=== PATIENT | female | born 1940 | race Caucasian/White ===

== ENCOUNTER 2020-06-18 08:21 | Outpatient (CLI) | payer MEDICARE, OTHER, SELFPAY ==
--- NOTE | ~2020-06-18 | MM_ITS ---
EXAMINATION: MM screening [facility] BI w aileen HISTORY: Screening mammogram TECHNIQUE: Craniocaudal and mediolateral oblique 3-D tomosynthesis images were obtained and synthetic 2-D images were generated. CAD analysis was submitted and interpreted. COMPARISON: 10/28/2018 diagnostic left mammogram and left breast 10/20/2018, 10/29/2015 bilateral digital screening mammogram examinations BREAST PARENCHYMAL COMPOSITION: The breasts are heterogeneously dense, which may obscure small masses . FINDINGS: Stable fibroglandular asymmetry. There is no evidence of suspicious mass, calcification, or architectural distortion to suggest malignancy in either breast. There has been no suspicious interv al change. IMPRESSION: 1. No mammographic evidence of malignancy. 2. Recommend routine screening mammography in one year. BI-RADS Category 2: Benign finding(s). Reviewed, dictated and finalized at location A.
== END 2020-06-18 08:22 | disposition home or self-care (01) ==
LOC: CHSIMG 08:24
PROVIDERS: PCP Nurse Practitioner Family; Visit Provider Nurse Practitioner Family
DX: Z12.31 Encounter for screening mammogram for malignant neoplasm of breast (principal)
CPT/HCPCS: 77063; 77067

== ENCOUNTER 2020-07-25 09:59 | Outpatient (CLI) | payer MEDICARE, SELFPAY ==
[2020-07-25 10:13] LABS: Hematocrit 38.6 % (35.0-42.0); Hemoglobin 13.2 g/dL (11.7-13.8); Mean Corpuscular HGB Conc 34.2 g/dL (32.0-36.0); Mean Corpuscular Hemoglobin 33.2 pg (27.0-31.0); Mean Platelet Volume 10.7 fl (9.2-11.8); Platelet Count Result 169 K/mm3 (150-420); Red Blood Count 3.98 M/mm3 (4.20-5.40); White Blood Count 4.2 K/mm3 (4.8-10.8)
[2020-07-25 11:00] LABS: Alanine Aminotransferase 43 U/L (14-59); Albumin Level 4.3 g/dL (3.4-5.0); Alkaline Phosphatase 44 U/L (46-116); Anion Gap 11 mmol/L (8-16); Aspartate Amino Transferase 20 U/L (15-37); Bilirubin,Total 0.9 mg/dL (0.00-1.00); Blood Urea Nitrogen 24 mg/dL (7-18); Calcium 9.6 mg/dL (8.5-10.1); Carbon Dioxide 28 mmol/L (21-32); Chloride 102 mmol/L (98-108); Estimated Glomerular Filt Rate 54; Glucose 111 mg/dL (70-99); Osmolality Calculated 297 mOsm/kg (285-295); Potassium 4.1 mmol/L (3.5-5.1); Sodium 141 mmol/L (136-145)
== END 2020-07-25 10:00 | disposition home or self-care (01) ==
LOC: CHSLAB 10:02
PROVIDERS: PCP Nurse Practitioner Family; Visit Provider Nurse Practitioner Family
DX: I10 Essential (primary) hypertension (principal)
CPT/HCPCS: 36415; 80053; 85027

== ENCOUNTER 2020-12-13 10:31 | Outpatient (CLI) | payer MEDICARE, OTHER, SELFPAY ==
--- NOTE | ~2020-12-13 | XR_ITS ---
EXAMINATION: XR chest 2V 12/13/2020 11:06 INDICATION: Chest pain and tightness PROCEDURE: 2 view chest COMPARISON: Heart size normal. No focal air space disease, pulmonary edema, pleural effusion or suspe cted pneumothorax. FINDINGS: The lungs are clear. The cardiomediastinal silhouette is within normal limits. There are no pleural effusions. There is no pneumothorax suspected. IMPRESSION: 1: NO ACUTE CARDIOPULMONARY DISEASE. Reviewed, dictated and finalized at location B.
--- NOTE | 2020-12-13 10:44 | ECG_ITS ---
Measurements Intervals [place] Rate: 61 P: 70 [place]: 153 QRS: 18 QRSD: 92 T: 65 QT: 387 QTc: 392 Interpretive Statements SINUS RHYTHM DELAYED PRECORDIAL R/S TRANSITION BORDERLINE ECG Electronically Signed On 12-13-2020 13:34:41 CDT by Vitaliy Osborne D.O.
== END 2020-12-13 10:32 | disposition home or self-care (01) ==
LOC: CHSCARD 10:35
PROVIDERS: PCP Nurse Practitioner Family; Visit Provider Nurse Practitioner Family
DX: R07.9 Chest pain, unspecified (principal)
CPT/HCPCS: 71046; 93005

== ENCOUNTER 2021-04-18 09:13 | Outpatient (CLI) | payer MEDICARE, OTHER, SELFPAY ==
--- NOTE | ~2021-04-18 | US_ITS ---
EXAMINATION: US carotid duplex BI DATE: 04/18/2021 09:47 INDICATION: Vascular headache. TECHNIQUE: Grayscale, color Doppler, and pulsed Doppler images of the cervical carotid arteries were obtained. The degree of vessel stenosis is placed in one of the following categories: normal, <50%, 5 0-69%, >=70% but less than near-occlusion, near-occlusion, or total occlusion. Note that percent sten osis relative to normal distal artery lumen diameter is indirectly measured from velocity measurement s as described by En, et al. Radiology 2003; 229:340-346. Notes: Normal: Peak systolic velocity <125 centimeters/sec and no plaque <50%. Peak systolic velocity <125 ( EDV <40; ICA/CCA PSV ratio <2.0; used these factors only a tandem lesions or low cardiac output or co ntralateral disease) 50-69 %: PSV 125-230 (EDV 40-100; ratio 2-4) >= 70% but less than near occlusion: PSV greater than 230 (EDV > 100; ratio> 4.0) Near Occlusion: PSV that is variable; markedly narrowed lumen Occlusion: Absent flow on color/spectral Doppler and no lumen on mandel scale. COMPARISON: None. FINDINGS: RIGHT: The right common carotid artery (CCA) peak systolic velocity (PSV) is 83 cm/s. The right internal car otid artery (ICA) PSV is 55 cm/s. The right ICA end-diastolic velocity (EDV) is 14 cm/s. The right IC A/CCA PSV ratio is 0.7. The external carotid artery (ECA) PSV is 74 cm/s. There is antegrade flow in the right vertebral artery. LEFT: The left CCA PSV is 92 cm/s. The left ICA PSV is 54 cm/s. The left ICA EDV is 12 cm/s. The left ICA/C CA PSV ratio is 0.6. The ECA PSV is 68 cm/s. There is antegrade flow in the left vertebral artery. IMPRESSION: 1. Less than 50% stenosis in the right internal carotid artery by sonographic criteria. 2. Less than 50% stenosis in the left internal carotid artery by sonographic criteria. Reviewed, dictated and finalized at location B. RGRADUATE INTERNSHIP IMPRESSION: 1. Less than 50% stenosis in the right internal carotid artery by sonographic luana lantigua. 2. Less than 50% stenosis in the left internal carotid artery by sonographic henrietta desouza.
== END 2021-04-18 09:14 | disposition home or self-care (01) ==
LOC: ANHIMG 09:17
PROVIDERS: PCP Nurse Practitioner Family; Visit Provider Nurse Practitioner Family
DX: G44.1 Vascular headache, not elsewhere classified (principal); R42 Dizziness and giddiness; I65.23 Occlusion and stenosis of bilateral carotid arteries
CPT/HCPCS: 93880

== ENCOUNTER 2021-04-21 13:21 | Outpatient (CLI) | payer MEDICARE, OTHER, SELFPAY ==
--- NOTE | 2021-04-21 | ECHO_ITS ---
Patient Info Name: Briana Ferrell Age: 80 years : 1940 Gender: Female Ht: 58 in Wt: 128 lbs BSA: 1.56 m2 HR: 76 bpm BP: 149 / 82 mmHg Heart Rhythm: Sinus Rhythm Exam Date: 04/21/2021 1:54 PM Exam Location: [facility] Patient Status: Outpatient Admit Date: 04/21/2021 Staff Ordering Physician: Jong, Olegario Hernández NP Retail Advisor: Timbo Vincent, DARIEL, RT Attending Provider: Jong, Olegario Hernández NP Referring Physician: Jong GONZALEZ; Exam Type: CA echo doppler color flow Study Info Indications R00.2 - Palpitations Complete two-dimensional, color flow and Doppler transthoracic echocardiogram is performed. Strain analysis performed. Summary 1. Complete two-dimensional, color flow and Doppler transthoracic echocardiogram is performed. 2. Strain analysis performed. 3. Left ventricular chamber dimension is normal. 4. Left ventricular systolic function is normal, estimated at 65-70%. 5. There is mildly increased left ventricular wall thickness. 6. Left ventricular septal wall motion is normal. 7. The left ventricular diastolic function is grade I diastolic dysfunction. 8. Global longitudinal strain is normal at -19 %. 9. Left atrial chamber dimension is mildly enlarged. 10. There is mild aortic valve regurgitation. 11. There is mild aortic valve calcification. 12. The mitral valve has calcified annulus. 13. There is mild tricuspid valve regurgitation. 14. Mild pulmonary hypertension, estimated pulmonary arterial systolic pressure is 37 mmHg. Left Ventricle Left ventricular chamber dimension is normal. Left ventricular systolic function is normal, estimated at 65-70%. There is mildly increased left ventricular wall thickness. Left ventricular septal wall motion is normal. The left ventricular diastolic function is grade I diastolic dysfunction. Global longitudinal strain is normal at -19 %. Right Ventricle Right ventricular chamber dimension is normal. Right ventricular systolic function is normal. Left Atria Left atrial chamber dimension is mildly enlarged. Right Atria Right atrial chamber dimension is normal. Atrial Septum Intact interatrial septum visualized by color flow imaging. Aortic Valve The aortic valve is trileaflet. There is no aortic valve stenosis. There is mild aortic valve regurgitation. There is mild aortic valve calcification. Pulmonic Valve The pulmonic valve is normal. There is no pulmonic valve stenosis. There is trace pulmonic regurgitation. Mitral Valve The mitral valve has calcified annulus. There is no mitral valve stenosis. There is trace mitral valve regurgitation. Tricuspid Valve The tricuspid valve leaflets are normal. There is no significant tricuspid valve stenosis. There is mild tricuspid valve regurgitation. Mild pulmonary hypertension, estimated pulmonary arterial systolic pressure is 37 mmHg. Pericardium/Pleural The pericardium appears normal. There is trivial pericardial effusion. Inferior Vena Cava Normal inferior vena cava with >50% collapse upon inspiration consistent with normal right atrial pressure, 5 mmHg. Aorta The aortic root size at the sinus of Valsalva is normal. Left Ventricular Outflow Tract Name Value Normal LVOT 2D
== END 2021-04-21 13:22 | disposition home or self-care (01) ==
LOC: ANHCARD 13:25
PROVIDERS: PCP Nurse Practitioner Family; Visit Provider Nurse Practitioner Family
DX: R00.2 Palpitations (principal); I08.3 Combined rheumatic disorders of mitral, aortic and tricuspid valves
CPT/HCPCS: 93306

== ENCOUNTER 2021-04-23 09:31 | Outpatient (CLI) | payer MEDICARE, OTHER, SELFPAY ==
--- NOTE | ~2021-04-23 | CT_ITS ---
EXAMINATION: CT brain wo con DATE: 04/23/2021 09:55 INDICATION: Forgetfulness, memory loss. History of transient ischemic attack. TECHNIQUE: Computed tomography (CT) of the head was performed without intravenous contrast. The mA wa s adjusted according to patient size. Iterative reconstruction technique was employed. Exam dose: 60 5.33 mGy-cm total exam DLP. COMPARISON: None FINDINGS: There is cerebral atherosclerosis including prominent bilateral carotid siphon internal car otid artery and some vertebral and basilar artery calcification. There is nonspecific diminished atte nuation of the cerebral white matter, likely due to chronic small vessel ischemic changes. No intracranial mass lesion or hemorrhage or cerebrovascular accident, midline shift or mass effect. Ventricular size is normal. Included sinuses and mastoid air cells are unremarkable. No fracture or bone destruction of the cranial vault. IMPRESSION: Cerebral atherosclerosis and chronic small vessel ischemic changes of the cerebral white matter No significant abnormality is noted otherwise Reviewed, dictated and finalized at Location A. Reviewed, dictated and finalized at location A. 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
== END 2021-04-23 09:32 | disposition home or self-care (01) ==
LOC: ANHIMG 09:32
PROVIDERS: PCP Nurse Practitioner Family; Visit Provider Nurse Practitioner Family
DX: R41.3 Other amnesia (principal); I67.2 Cerebral atherosclerosis
CPT/HCPCS: 70450

== ENCOUNTER 2021-05-30 19:30 | Emergency (ER) | payer MEDICARE, OTHER, SELFPAY ==
--- NOTE | ~2021-05-30 | XR_ITS ---
XR wrist LT w scaphoid DATE: 05/30/2021 19:57 INDICATION: Left wrist injury from fall; pain and deformity. TECHNIQUE: 5 views COMPARISON: None FINDINGS: There is diffuse osteopenia. There is a comminuted impacted intra-articular fracture of the distal radius with approximately 40 de grees apex anterior angulation, up to 2.7 mm dorsal displacement. There is severe osteoarthritic change at the first carpometacarpal joint. IMPRESSION: Comminuted impacted intra-articular fracture of distal radius with up to 40 degrees apex anterior angulation Severe osteoarthritis at the first carpometacarpal joint Osteopenia Reviewed, dictated and finalized at location A.
[2021-05-30 19:39] VITALS: BP 160/80; PULSE 80; RESP 18; TEMP 36.4; O2SAT 99
--- NOTE | 2021-05-30 19:43 | ED.GENADULT ---
HPI - General Adult General Chief complaint: Fall Stated complaint: ARM INJURY Source: patient Mode of arrival: ambulatory Limitations: no limitations History of Present Illness HPI narrative: Briana presented to the ED after a fall while bowling. She fell onto her left wrist. She has no other injuries. She did not hit her head or neck. She denies any pain. Related Data Home Medications Medication Instructions Recorded Confirmed aspirin 81 mg tablet,delayed 81 mg PO DAILY 06/20/19 05/30/21 release ascorbate calcium (vitamin C) 500 500 mg PO DAILY 07/25/20 05/30/21 mg tablet zinc 50 mg tablet 50 mg PO DAILY 07/25/20 05/30/21 Allergies Allergy/AdvReac Type Severity Reaction Status Date / Time Sulfonamides Allergy Intermediate Unknown Uncoded 02/04/21 09:04 Review of Systems Constitutional: Constitutional: Reports no additional constitutional complaints Eyes: Eyes: Reports no additional eye complaints ENT: Reports system reviewed and no additional complaints, except as documented Cardiovascular: Cardiovascular: Reports no additional cardiovascular complaints Respiratory: Respiratory: Reports no additional respiratory complaints Gastrointestinal: Gastrointestinal: Reports no additional gastrointestinal complaints Genitourinary: Genitourinary: Reports no additional female genitourinary complaints Musculoskeletal: Musculoskeletal: Reports no additional musculoskeletal complaints Integumentary/Breasts: Skin/Breast: Reports system reviewed and no additional complaints, except as docu Neurologic: Reports system reviewed and no additional complaints, except as documented Psychiatric: Psychiatric: Reports no additional psychiatric complaints Endocrine: Endocrine: Reports no additional endocrine complaints Hematologic/Lymphatic: Hematologic/Lymphatic: Reports no additional hematologic/lymphatic complaints Allergic/Immunologic: Allergic/Immunologic: Reports no additional allergic/immunologic complaints [facility] Past Medical History Medical History HTN (hypertension) Hyperlipidemia Surgical History Surgical History History of section, classical x3 History of lumpectomy x's 3 Family History Family History Mother Family history unremarkable Father Heart disease Social History Social History Smoking status: Never smoker Alcohol intake: never Substance use type: does not use Additional occupation/education comments: [employer] Gender identity (if verbalized by the patient): Female Sexual Orientation (if Verbalized by the Patient): Straight or Heterosexual Exam Const: General: no acute distress and alert Orientation/consciousness: patient oriented x3 Limitations: No altered mental status HENMT: Head: normal to inspection Other: atrauamtic Eyes: Conjunctivae: conjunctivae normal Pupils: Equal, round and reactive pupils present Neck: Neck: normal visual inspection Chest: Chest palpation & inspection: normal inspection of the chest Resp: Effort & Inspection: normal respiratory effort Cardio: Rate: regular rate Skin: General skin exam: normal color Rashes: no rashes Neuro: General: patient oriented x3 and moves all extremities Extrem: Other: Left wrist has obvious deformity with posterior displacement of the left wrist. Sensation intact in all fingers. Radial pulse intact. Course Course Emergency Course: Declined pain meds multiple times. XR wrist LT w scaphoid DATE: 05/30/2021 19:57 INDICATION: Left wrist injury from fall; pain and deformity. TECHNIQUE: 5 views COMPARISON: None FINDINGS: There is diffuse osteopenia. There is a comminuted impacted intra-articular fracture of the distal radius with approx
--- NOTE | 2021-05-30 20:52 | PC.NURSE ---
films sent to [facility]
--- NOTE | 2021-05-30 21:29 | PC.NURSE ---
OCL spint applied per MD, automatic typewriter inspector applied sling. nail beds keven well, good pulses in left arm & hand
[2021-05-30 21:36] VITALS: BP 150/88; PULSE 88; RESP 18; TEMP 36.6; O2SAT 99
== END 2021-05-30 21:38 | disposition short-term general hospital (02) ==
PROVIDERS: Emergency Provider Family Medicine; PCP Nurse Practitioner Family
DX: S52.502A Unspecified fracture of the lower end of left radius, initial encounter for closed fracture (principal); W19.XXXA Unspecified fall, initial encounter
CPT/HCPCS: 29125; 73110; 99284; A4565

== ENCOUNTER 2021-06-12 08:33 | Outpatient (CLI) | payer MEDICARE, SELFPAY ==
[2021-06-12 10:00] LABS: Cholesterol 163 mg/dL (0-200); HDL Direct 44 mg/dL (40-60); LDL Cholesterol Calculated 97 mg/dL (<130); Triglycerides 108 mg/dL (0-150)
== END 2021-06-12 08:34 | disposition home or self-care (01) ==
PROVIDERS: PCP Nurse Practitioner Family
DX: E78.00 Pure hypercholesterolemia, unspecified (principal); G45.9 Transient cerebral ischemic attack, unspecified
CPT/HCPCS: 36415; 80061

== ENCOUNTER 2021-08-01 13:04 | Outpatient (RCR) | payer MEDICARE, SELFPAY ==
--- NOTE | 2021-08-01 14:03 | OTOPEVAL ---
Thank you for referring Briana Ferrell to [facility].? The patient is scheduled to be seen for therapy? ____x/week for ___ weeks. Please review, sign, date and return this plan of care RONAN. I agree with and certify that the following plan of care is medically necessary. Referring Physician Date Admitting Provider: Attending Provider: MAO LARA Referring Provider: JoanOT Outpatient Evaluation Start: 08/01/21 13:00 Freq: Status: Active Protocol: Document 08/01/21 13:00 [facility] [place] (Rec: 08/01/21 14:02 [facility] [place] [id number]) Therapy Assessment Status Assessment Status Assessment Status Evaluation Outpatient Past Medical History Neurological History Hx Transient Ischemic Attacks (TIA) Yes Cardiovascular History Hx Cardiac Arrhythmia Yes Hx Heart Murmur Yes Hx Hypercholesterolemia Yes Hx Hypertension Yes Gastrointestinal History Hx Gastroesophageal Reflux Disease Yes Musculoskeletal History Hx Arthritis Yes Evaluation Information Problem Diagnosis decreased L wrist ROM and strength Onset 05/30/21 Cause L distal radius fracture, L styloid process of ulna fracture Additional Evaluation Detail Quick DASH: 36.4% Subjective Information Patient reports that she fell Query Text:As Reported By Patient/ on 05/30/21 while bowling. Family Patient was in a splint/brace until about ~2 weeks ago. Patient reports that she has been trying to make herself use the L hand more and more. Patient states that opening containers, jars, etc is difficult. Patient states that her goal for therapy is to get her L wrist and hand stronger. 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
--- NOTE | 2021-08-26 15:40 | OTOPEVAL ---
Thank you for referring Briana Ferrell to [facility].? The patient is scheduled to be seen for therapy? ____x/week for ___ weeks. Please review, sign, date and return this plan of care RONAN. I agree with and certify that the following plan of care is medically necessary. Referring Physician Date Admitting Provider: Attending Provider: MAO LARA Referring Provider: JoanOT Outpatient Evaluation Start: 08/01/21 13:00 Freq: Status: Active Protocol: Document 08/26/21 14:[address] [facility] (Rec: 08/26/21 15:[address] [facility] [id number]) Therapy Assessment Status Assessment Status Assessment Status Discharge Outpatient Past Medical History Neurological History Hx Transient Ischemic Attacks (TIA) Yes Cardiovascular History Hx Cardiac Arrhythmia Yes Hx Heart Murmur Yes Hx Hypercholesterolemia Yes Hx Hypertension Yes Gastrointestinal History Hx Gastroesophageal Reflux Disease Yes Musculoskeletal History Hx Arthritis Yes Pain Assessment Timing of Pain Assessment Timing of Pain Assessment Re-assessment Self Report Self Report Pain Level 0 Pain Score Pain Score 0: Self Report Upper Extremity Range of Motion Wrist Range of Motion Left Wrist Flexion - Active 70 Wrist Extension - Active 55 Upper Extremity Muscle Strength Testing General Upper Extremity Strength Gross Upper Extremity Strength Comments L wrist: 5/5 Hand Oxyacetylene Burner/Pinch Strength Assessment Hand Left Oxyacetylene Burner Strength (lbs) 23 General Exercise General Exercises Side Left Exercise Description L wrist flexion/extension,2x10 Query Text:Record Sets, Reps, with 2 lb weight Resistance, and Position L supination/pronation 2x10 with 2 lb weight L radial/ulnar deviation 2x15 reps with 2 lb weight Red digi-flex resisting L finger flexion, 1x20 Green digi-flex resisting L finger flexion, 1x20 L tripod grasp resisting green clothespin, 2x20 pink theraputty resisting L functional pull with L-bar and standard turn with large knob , 10 reps x 2 sets each [ End ] Manual Therapy Manual Therapy Side Left Patient Position Sitting Treatment Comments STM to L dorsal and volar Query Text:Include Technique and forearm and wrist Result of Technique PROM L wrist flexion/extension
== END 2021-08-26 16:44 | disposition home or self-care (01) ==
LOC: CHSOT 13:04
DX: S52.502D Unspecified fracture of the lower end of left radius, subsequent encounter for closed fracture with routine healing (principal); S52.612D Displaced fracture of left ulna styloid process, subsequent encounter for closed fracture with routine healing
CPT/HCPCS: 97110; 97140; 97165

== ENCOUNTER 2021-11-11 07:54 | Outpatient (CLI) | payer MEDICARE, SELFPAY ==
--- NOTE | ~2021-11-11 | MM_ITS ---
EXAMINATION: MM screening [facility] BI w aileen HISTORY: Screening mammogram TECHNIQUE: Craniocaudal and mediolateral oblique 3-D tomosynthesis images were obtained and synthetic 2-D images were generated. CAD analysis was submitted and interpreted. COMPARISON: 06/18/2020, 10/28/2018, 10/20/2018 BREAST PARENCHYMAL COMPOSITION: There are scattered areas of fibroglandular density. FINDINGS: There is no suspicious mass, calcification, or architectural distortion to suggest malignan cy in either breast. There has been no suspicious interval change. IMPRESSION: 1. No mammographic evidence of malignancy. 2. Recommend routine screening mammography in one year. BI-RADS Category 1: Negative Reviewed, dictated and finalized at location A.
== END 2021-11-11 07:55 | disposition home or self-care (01) ==
LOC: CHSIMG 07:57
PROVIDERS: PCP Nurse Practitioner Family; Visit Provider Nurse Practitioner Family
DX: Z12.31 Encounter for screening mammogram for malignant neoplasm of breast (principal)
CPT/HCPCS: 77063; 77067

== ENCOUNTER 2021-12-12 08:23 | Outpatient (CLI) | payer MEDICARE, SELFPAY ==
[2021-12-12 09:50] LABS: Alanine Aminotransferase 31 U/L (14-59); Albumin Level 4.2 g/dL (3.4-5.0); Alkaline Phosphatase 49 U/L (46-116); Aspartate Amino Transferase 15 U/L (15-37); Bilirubin Direct 0.2 mg/dL (0-0.2); Bilirubin,Total 0.8 mg/dL (0.00-1.00); Cholesterol 172 mg/dL (0-200); HDL Direct 38 mg/dL (40-60); LDL Cholesterol Calculated 94 mg/dL (<130); Triglycerides 202 mg/dL (0-150)
== END 2021-12-12 08:24 | disposition home or self-care (01) ==
LOC: CHSLAB 08:27
PROVIDERS: PCP Nurse Practitioner Family
DX: E78.00 Pure hypercholesterolemia, unspecified (principal); G45.9 Transient cerebral ischemic attack, unspecified
CPT/HCPCS: 36415; 80061; 80076

== ENCOUNTER 2022-02-04 09:08 | Outpatient (CLI) | payer MEDICARE, SELFPAY ==
[2022-02-04 10:10] LABS: Alanine Aminotransferase 43 U/L (14-59); Albumin Level 4.3 g/dL (3.4-5.0); Alkaline Phosphatase 52 U/L (46-116); Aspartate Amino Transferase 22 U/L (15-37); Bilirubin Direct 0.2 mg/dL (0-0.2); Bilirubin,Total 0.8 mg/dL (0.00-1.00); Cholesterol 147 mg/dL (0-200); HDL Direct 45 mg/dL (40-60); LDL Cholesterol Calculated 78 mg/dL (<130); Triglycerides 122 mg/dL (0-150)
== END 2022-02-04 09:09 | disposition home or self-care (01) ==
LOC: CHSLAB 09:13
PROVIDERS: PCP Nurse Practitioner Family
DX: E78.00 Pure hypercholesterolemia, unspecified (principal)
CPT/HCPCS: 36415; 80061; 80076

== ENCOUNTER 2022-04-21 08:09 | Outpatient (CLI) | payer MEDICARE, SELFPAY ==
[2022-04-21 08:50] LABS: Cholesterol 133 mg/dL (0-200); HDL Direct 41 mg/dL (40-60); LDL Cholesterol Calculated 70 mg/dL (<130); Triglycerides 112 mg/dL (0-150)
== END 2022-04-21 08:10 | disposition home or self-care (01) ==
LOC: CHSLAB 08:12
PROVIDERS: PCP Nurse Practitioner Family
DX: E78.00 Pure hypercholesterolemia, unspecified (principal)
CPT/HCPCS: 36415; 80061

== ENCOUNTER 2022-11-13 13:33 | Outpatient (CLI) | payer MEDICARE, OTHER, SELFPAY ==
--- NOTE | ~2022-11-13 | US_ITS ---
EXAMINATION:US venous doppler LE RT INDICATION:Bruising medial half of the right calf TECHNIQUE: Multiple grayscale, color flow and Doppler images of the right lower extremity deep venous systems were obtained and reviewed. COMPARISON:No prior studies for comparison. FINDINGS: The common femoral, superficial femoral and popliteal veins demonstrate normal respiratory variation, augmentation and compressibility. Color flow is also seen within the posterior tibial, pe roneal, greater saphenous and profunda veins. IMPRESSION: 1: No lower extremity deep venous thrombosis. Reviewed, dictated and finalized at location A.
== END 2022-11-13 13:34 | disposition home or self-care (01) ==
LOC: CHSIMG 13:34
PROVIDERS: PCP Nurse Practitioner Family; Visit Provider Nurse Practitioner Family
DX: M79.661 Pain in right lower leg (principal); S80.11XA Contusion of right lower leg, initial encounter
CPT/HCPCS: 93971

== ENCOUNTER 2023-03-31 08:30 | Outpatient (CLI) | payer MEDICARE, SELFPAY ==
[2023-03-31 09:16] LABS: Alanine Aminotransferase 40 U/L (14-59); Alkaline Phosphatase 40 U/L (46-116); Aspartate Amino Transferase 18 U/L (15-37); Bilirubin Direct 0.2 mg/dL (0-0.2); Bilirubin,Total 0.7 mg/dL (0.00-1.00); Cholesterol 137 mg/dL (0-200); HDL Direct 45 mg/dL (40-60); LDL Cholesterol Calculated 68 mg/dL (<130); Triglycerides 122 mg/dL (0-150)
== END 2023-03-31 08:31 | disposition home or self-care (01) ==
LOC: CHSLAB 08:34
PROVIDERS: PCP Nurse Practitioner Family
DX: E78.00 Pure hypercholesterolemia, unspecified (principal)
CPT/HCPCS: 36415; 80061; 80076

== ENCOUNTER 2023-05-10 08:26 | Outpatient (CLI) | payer MEDICARE, OTHER, SELFPAY ==
--- NOTE | ~2023-05-10 | MM_ITS ---
EXAMINATION: MM screening tata BI w aileen HISTORY: Screening TECHNIQUE: Craniocaudal and mediolateral oblique 3-D tomosynthesis images were obtained and synthetic 2-D images were generated. CAD analysis was submitted and interpreted. COMPARISON: Comparison to multiple prior studies sequentially, with oldest reviewed study dated 10/10. BREAST PARENCHYMAL COMPOSITION: Dense: The breasts are heterogeneously dense, which may obscure small masses FINDINGS: There is no evidence of suspicious mass, calcification, or architectural distortion to sugg est malignancy in either breast. There has been no suspicious interval change. IMPRESSION: 1. No mammographic evidence of malignancy. 2. Recommend routine screening mammography in one year. BI-RADS Category 1: Negative Reviewed, dictated and finalized at location A.
== END 2023-05-10 08:27 | disposition home or self-care (01) ==
LOC: CHSIMG 08:27
PROVIDERS: PCP Nurse Practitioner Family; Visit Provider Nurse Practitioner Family
DX: Z12.31 Encounter for screening mammogram for malignant neoplasm of breast (principal)
CPT/HCPCS: 77063; 77067

== ENCOUNTER 2023-10-12 19:06 | Emergency (ER) | payer MEDICARE, OTHER, SELFPAY ==
[2023-10-12] VITALS (15 sets, daily range): BP systolic 124–170; BP diastolic 50–75; PULSE 67–82; RESP 15–21; TEMP 36.6–36.7; O2SAT 92–95
--- NOTE | ~2023-10-12 | XR_ITS ---
EXAMINATION: XR chest 1V portable DATE: 10/12/2023 19:54 INDICATION: Chest pain TECHNIQUE: frontal view of the chest was obtained. COMPARISON: Chest radiograph dated 12/13/2020 FINDINGS: The lungs remain clear with no focal airspace opacities, pulmonary edema, pleural effusion or pneumot horax. Heart size is normal. Tortuous thoracic aorta. IMPRESSION: 1. No acute cardiopulmonary disease. Reviewed, dictated and finalized at location A.
--- NOTE | 2023-10-12 19:35 | ECG_ITS ---
Test Date: 2023-10-12 19:11:33 Measurements Intervals [place] Rate: 79 P: 13 ID: [id number] QRS: -30 QRSD: 92 T: 33 QT: 391 QTc: 450 Interpretive Statements SINUS RHYTHM WITH FREQUENT SUPRAVENTRICULAR PREMATURE COMPLEXES BORDERLINE LEFT AXIS DEVIATION [QRS AXIS < -20] INCOMPLETE RIGHT BUNDLE BRANCH BLOCK [90+ ms QRS DURATION, TERMINAL R IN V1/V2, 40+ ms S IN I/aVL/V4/V5/V6] No previous ECG available for comparison Electronically Signed On 10-13-2023 15:48:30 CDT by Leila Kendrick M.D.
--- NOTE | 2023-10-12 19:39 | ED.CHESTPAIN ---
HPI - Chest Pain General Chief Complaint: Chest Pain Stated Complaint: chest discomfort Time Seen by Provider: 10/12/23 19:12 Source: patient Mode of arrival: ambulatory Limitations: no limitations History of Present Illness HPI narrative: Patient 82-year-old female with significant past medical history that presents today for shortness of breath and chest discomfort. Patient says for the last week now she has has some chest discomfort and shortness of breath. She states that yesterday she was walking a lot and walks on an incline and was short of breath very quickly. She states she normally walks about a mi and a half 3 days a week at the gym and does not get short of breath. Says this is very different for her. She states that this been going on now for a week and half. She states that she has chest discomfort. It is not chest pain and does not feel like pressure but just feels like it is uncomfortable. She has a history aortic stenosis and apparent leaky mitral valve. She does see a computing systems mechanic once here and started to see him because she had a TIA a few years ago. MD complaint: chest discomfort and other ( Shortness of breath) Pertinent past history: other ( aortic stenosis, mitral valve regurgitation) Onset (ago): week(s) Timing of current episode: constant Prior episodes: No Onset: during rest and during exertion Quality: tightness Risk Factors Coronary artery disease risk factors: none Thoracic aortic dissection risk factors: none Related Data Home Medications Medication Instructions Recorded Confirmed aspirin 81 mg tablet,delayed 81 mg PO DAILY 06/20/19 09/08/23 release (Adult Aspirin Regimen) ascorbate calcium (vitamin C) 500 500 mg PO DAILY 07/25/20 09/08/23 mg tablet simvastatin 40 mg tablet 40 mg PO DAILY 08/04/22 09/08/23 cholecalciferol (vitamin D3) 50 50 mcg PO DAILY 08/18/22 09/08/23 mcg (2,000 unit) capsule mecobalamin (vitamin B12) 1,000 1,000 mcg PO DAILY 08/18/22 09/08/23 mcg chewable tablet Allergies Allergy/AdvReac Type Severity Reaction Status Date / Time Sulfonamides Allergy Intermediate Unknown Uncoded 09/08/23 11:03 atorvastatin AdvReac Mild Itching Uncoded 09/08/23 11:03 Review of Systems Review of Systems: All systems reviewed & are unremarkable except as noted in HPI and below Constitutional: Constitutional: Reports as per HPI Eyes: Eyes: Reports no additional eye complaints ENT: Reports system reviewed and no additional complaints, except as documented Cardiovascular: Cardiovascular: Reports as per HPI and Reports other (irregular heart rate) Respiratory: Respiratory: Reports no additional respiratory complaints Gastrointestinal: Gastrointestinal: Reports no additional gastrointestinal complaints Genitourinary: Genitourinary: Reports no additional female genitourinary complaints Musculoskeletal: Musculoskeletal: Reports no additional musculoskeletal complaints Integumentary/Breasts: Skin/Breast: Reports system reviewed and no additional complaints, except as docu Neurologic: Reports system reviewed and no additional complaints, except as documented Psychiatric: Psychiatric: Reports no additional psychiatric complaints Endocrine: Endocrine: Reports no additional endocrine complaints Hematologic/Lymphatic: Hematologic/Lymphatic: Reports no additional hematologic/lymphatic complaints Allergic/Immunologic: Allergic/Immunologic: Reports no additional allergic/immunologic complaints PMFSH Past Medical History Medical History HTN (hypertension) Hyperlipidemia Screening for diabetes mellitus Surgical History Surgical History History of section, classical x3 History of lumpectomy x's 3 Family History Family History Mother Family history unremarkable Father Hea
[2023-10-12 19:51] LABS: Basophils Absolute Auto 0.04 K/mm3 (0.00-0.10); Basophils Percent Auto 0.9 % (0.0-1.0); Eosinophils Absolute Auto 0.12 K/mm3 (0.02-0.50); Eosinophils Percent Auto 2.6 % (1.0-6.0); Hematocrit 35.3 % (35.0-42.0); Hemoglobin 12.1 g/dL (11.7-13.8); Immature Granulocyte Absolute 0.02 K/mm3 (0.00-0.00); Immature Granulocyte Percent A 0.4 % (0.0-0.0); Lymphocytes Absolute Auto 0.95 K/mm3 (1.10-4.50); Lymphocytes Percent Auto 20.8 % (18.0-42.0); Mean Corpuscular HGB Conc 34.3 g/dL (32-36); Mean Corpuscular Hemoglobin 33.1 pg (27.0-31.0); Mean Corpuscular Volume 96.4 fL (78.0-102.0); Mean Platelet Volume 10.4 fl (9.2-11.8); Monocytes Absolute Auto 0.41 K/mm3 (0.10-0.90); Neutrophils Absolute Auto 3.02 K/mm3 (1.70-7.20); Neutrophils Percent Auto 66.3 % (50.0-70.0); Platelet Count Result 180 K/mm3 (150-420); Red Blood Count 3.66 M/mm3 (4.20-5.40); Red Cell Distribution Width 12.1 % (11.6-14.4); White Blood Count 4.6 K/mm3 (4.8-10.8)
[2023-10-12 20:04] LABS: D Dimer 0.33 mg/L (0.19-0.50)
[2023-10-12 20:14] LABS: Alanine Aminotransferase 35 U/L (14-59); Albumin Level 3.9 g/dL (3.4-5.0); Alkaline Phosphatase 49 U/L (46-116); Anion Gap 9 mmol/L (4-12); Aspartate Amino Transferase 18 U/L (15-37); Bilirubin,Total 0.5 mg/dL (0.00-1.00); Blood Urea Nitrogen 16 mg/dL (7-18); Calcium 9.2 mg/dL (8.5-10.1); Carbon Dioxide 29 mmol/L (21-32); Chloride 100 mmol/L (98-108); Estimated Glomerular Filt Rate 53; Glucose 157 mg/dL (70-99); NT Pro B Type Natriuretic Pept 197 pg/mL (0-450); Osmolality Calculated 290 mOsm/kg (285-295); Potassium 3.6 mmol/L (3.5-5.1); Sodium 138 mmol/L (136-145); Total Protein 6.9 g/dL (6.4-8.2); Troponin I 7.2 ng/L (0.00-60.4)
[2023-10-12 20:53] LABS: Add Urine Microscopic? YES; Appearance Urine Clear (Clear); Bilirubin Urine Negative (Negative); Blood Urine Negative (Negative); Color Urine Light Yellow (Yellow); Glucose Urine UA Negative (Negative); Ketones Urine Negative (Negative); Leukocyte Esterase Ur 1+ LEU/UL (Negative); Nitrate Urine Negative (Negative); Protein Urine Negative (Negative); Urobilinogen Urine 0.2 mg/dL (0.2-1.0); pH Urine 6.5 (5.0-8.0)
[2023-10-12 20:57] LABS: Bacteria Urine Trace /hpf; RBC Urine 0-2 /hpf (0-2); Squamous Epithelial Cell Urine Rare /hpf (Few); WBC Urine 0-3 /hpf (0-3)
[2023-10-12] MEDS: METOPROLOL TARTRATE 25 MG TABLET PO (21:49)
--- NOTE | 2023-10-15 14:09 | PC.NURSE ---
urine culture reviewed. no uti indicated.
== END 2023-10-12 21:53 | disposition home or self-care (01) ==
PROVIDERS: Emergency Provider Family Medicine; PCP Family Medicine
DX: I49.8 Other specified cardiac arrhythmias (principal); I10 Essential (primary) hypertension; Z86.73 Personal history of transient ischemic attack (TIA), and cerebral infarction without residual deficits; Z79.899 Other long term (current) drug therapy; Z79.82 Long term (current) use of aspirin
CPT/HCPCS: 36415; 71045; 80053; 81001; 83880; 84484; 85025; 85380; 87086; 87088; 93005; 99284; A9270

== ENCOUNTER 2024-03-18 23:18 | Emergency (ER) | payer MEDICARE, OTHER, SELFPAY ==
[2024-03-18 23:18] VITALS: BP 153/71; PULSE 63; RESP 18; TEMP 36.4; O2SAT 97
--- OUTSIDE RECORDS SUMMARY | 2024-03-18 23:19 | XMS_ITS | Clinical Summary ---
Author Organization [facility] Address Formerly [facility] [facility] [place] [address] [place] [address] Care Team Providers Care Stoner Out Name Role Phone Olegario Sunshine MIRI Primary Care Provider [phone] Allergies No known active allergies Medications ondansetron 4 MG disintegrating tablet Take 1 tablet (4 mg total) by mouth every 8 (eight) hours as needed for Nausea. 20 tablet 2 Active HYDROcodone-acetami nophen 5-325 MG tabletIndications:A cute Pain < 7 Day Supply,wrist fracture Take 1 tablet by mouth every 6 (six) hours as needed. Indications: Acute Pain < 7 Day Supply, wrist fracture 15 tablet 2 Active Social History Tobacco Use Types Packs/Day Years Used Date Smoking Tobacco: Never Assessed Comments Unknown Sex and Gender Information Value Date Recorded Sex Assigned at Not on file Legal Sex Female 8:35 PM CDT Gender Identity Not on file Sexual Orientation Not on file Last Filed Vital Signs Vital Sign Reading Time Taken Comments Blood Pressure 157/71 05/30/2021 10:59 PM CDT Pulse 94 05/30/2021 10:59 PM CDT Temperature 36.4 ??C (97.5 ??F) 05/30/2021 1 0:59 PM CDT Respiratory Rate 20 05/30/2021 10:5 9 PM CDT Oxygen Saturation 99% 05/30/2021 10: 59 PM CDT Inhaled Oxygen Concentration - - Weight 59.8 kg (131 lb 13.4 oz) 022 10:59 PM CDT Height 147.3 cm (4' 10 ) 05/30/2021 10: 59 PM CDT Body Mass Index 27.55 05/30/2021 10:59 PM CDT Plan of Treatment Health Maintenance Due Date Last Done Comments DTaP, Tdap and Td Vaccines ( 1 - Tdap) 1957 Zoster Vaccines (1 of 2) 1988 Annual Medicare Wellness Visit 12/25/2003 Pneumococcal Vaccine: 65+ Years (1 of 1 - PCV) 12/25/2003 RSV Immunization or 60+ Years (1 - 1-dose 75+ series) 2013 COVID-19 Vaccine (3 - 2023-2 5 season) 2023 05/03/2020, 04/12/2020 Influenza Adult (#1) 2023 01/22/2021 Meningococcal B Vaccine Aged Out No l onger eligible based on patient's age to complete this topic Meningococcal Vaccine Aged Out No edwige nena eligible based on patient's age to complete this topic RSV Immunizations Under 20 Months Aged Out No longer eligible b ased on patient's age to complete [place] [id number] [employer] Care Teams Stoner Out Relationship Specialty Start Date End Date Olegario Sunshine FNP [facility] [place] [address] PCP - General Nurse Practitioner Family 05/30/21
--- OUTSIDE RECORDS SUMMARY | 2024-03-18 23:19 | XMS_ITS | Referral Summary ---
Author Organization [facility] [place] [address] [place] Address [address] [place] [id number] Care Team Providers Care Lab Director Name Role Phone Olegario Sunshine NP Primary Care Provider [phone] Allergies Active Allergy Reactions Criticality Noted Date Comments Sulfa Itching Low 03/05/2021 Medications lisinopril-hydroCHL OROthiazide (ZESTORETIC) 10-12.5 mg per tablet 1 Active vit D3-vit E-ivinnwwdk-qony [id number] wsrp-zvi-gt-mg tablet Take by mouth Active zinc 50 mg tablet Take by mouth Active aspirin 81 mg enteric coated tablet Take 81 mg by mouth daily Active simvastatin (ZOCOR) 10 mg tabletIndications:M ixed hyperlipidemia Take 1 tablet (10 mg total) by mouth nightly 90 tablet 2 Active Active Problems Problem Noted Date Diagnosed Date B12 deficiency 05/10/2021 Assessment & Plan (05/10/2021 5:18 PM CDT): B12 level was low on lab report. Will start B12 1000 mcg sublingual daily Will repeat B12 level in 2 months Encouraged to eat balanced, adequate fluids, Exercise as previously stated. Fatigue due to excessive exertion 03/08/2021 Assessment & Plan (05/10/2021 5:13 PM CDT): Talked with her in regards to vitamin B level will go ahead and start B12 a 1000 mcg sublingual daily again nature's made, requested she balanced adequate fluid Continue with exercise at least 3 times a week for 30 minutes as tolerated Assessment & Plan (04/17/2021 8:34 PM SEMICONDUCTOR PROCESSING GROUP LEADER): States fatigue is better. Post has cut back on her working hours, is resting in joint life, continues to do some walking for exercise. Did talk about putting a dog in her home noting that she would enjoy the company, is worried that she has gone and that might be an issue for the dog, will continue to explore. Assessment & Plan (03/08/2021 3:17 PM SEMICONDUCTOR PROCESSING GROUP LEADER): Diary of sleep, looking at quality of sleep and how many hours she sleeps per night. When does she have bad nights, causes, if she usees something for sleep at night. LAB today. Talked about diet, exercise and any problems with activity. Memory changes 03/08/2021 Assessment & Plan (05/10/2021 5:16 PM CDT): CT scan of head did show that she has some white matter changes, no tumors, masses, are signs of old stroke. Continues to be socially active with friends in with organizations and at work. Noted home she does do a lot a reading, watching television programs that stimulate the min. And continues to exercise on a regular basis. Bilateral carotid Dopplers showed less than 50% blockage, requests that she start on 81 mg baby aspirin on a daily basis. Assessment & Plan (04/17/2021 8:22 PM SEMICONDUCTOR PROCESSING GROUP LEADER): CT of heas of without contrast. Continue to watch for changes in memory or function. Continiue with Baby ASA. Also will set up for bilateral carotid doppler Assessment & Plan (03/08/2021 3:23 PM SEMICONDUCTOR PROCESSING GROUP LEADER): Lab today. Keep track of events Set up for CT of head Set up for bilateral carotid doppler. ASA 81mg one po at bedtime Talked with patient if things happened to go to hospital. Vitamin D deficiency 03/08/2021 Assessment & Plan (05/10/2021 5:11 PM CDT): Vitamin-D level was slightly low, will start vitamin-D 3 a 1000 international units daily . Will use in natures made brand for use. Requested she continue with her walking or exercises that put pressure on long bones. Also requested she balanced and drink adequate fluid, 64 oz per 24 hours. Probably repeat the level in 4-6 months Assessment & Plan (04/17/2021 8:32 PM SEMICONDUCTOR PROCESSING GROUP LEADER): Continue with vitamin D3 as ordered. Will get set up for a bone density at [facility] as available Assessment & Plan (03/08/2021 3:07 PM SEMICONDUCTOR PROCESSING GROUP LEADER): Lab today. Make sure she is eating balanced. Diet, exercise. Hypertension, essential 03/08/2021 Assessment & Plan (05/10/2021 5:08 PM CDT): Continue to monitor blood pressure at home at least 3 times a week noting goal Good blood pressure should be 120/70 over 80 heart rate should be above 60 up to 100 anything over please feel free to contact the office or myself Continue meds at this time as ordered. Continue to exercise like UR noting at least 3 times a week for 30 minutes are as tolerated Note at this itme GFR was 45, :BUN was within limits. Creatinine was elevated. 1.21. Suggested increasing fluid intake Will continue to monitor this for continuance of elevation Assessment & Plan (04/17/2021 8:24 PM SEMICONDUCTOR PROCESSING GROUP LEADER): Hypertension stable at this time Continue medications as ordered Continue to watch diet for increased salt intake or salty foods no added salt at this time. Exercise, at least 3 times per week, for 30 minutes or as tolerated Assessment & Plan (03/08/2021 2:58 PM SEMICONDUCTOR PROCESSING GROUP LEADER): Continue with medications as ordred. Watch diet for salt and salty foods. Exercise as tolerated 3 times a week for 30 min. Irregular heart beat 03/08/2021 Assessment & Plan (05/10/2021 5:03 PM CDT): No problems with irregular heartbeats at this time. Did review how to take a pulse with her in regards to the radial pulse at the wrist and also the carotid pulse in the neck requested she check this for 60 seconds noting fair irregularity and the count of the pulse. Noted this time no skipped beats were noted If this would continue to occur will get a 48 hour Holter to check to see what else is going on. Assessment & Plan (04/17/2021 8:31 PM SEMICONDUCTOR PROCESSING GROUP LEADER): Still having irregular heartbeat, lasting only a few minutes. Talked with patient about options to care noting past lab results were good. Next step would to get a Holter monitor, 2D echocardiogram with color flow, to refer to senior systems programmer. Will get CT and carotid Doppler done 1st. Unless palpitations become more frequently distress to the patient if there is any chest pain shortness of breath diaphoresis to go straight to the emergency room. Prefer that she goes to [facility], and ask for Dr. Luna or Dr. Watters or Saida.. Assessment & Plan (03/08/2021 3:06 PM SEMICONDUCTOR PROCESSING GROUP LEADER): Get old records for review. Lab today Keep track of irregular heart beats when and where beats occur. Possible cause and how long does it last. Avoid stimulents, chocolate, Strong coffee, power drinks, etc. Set up for echocardiogram. Get baseline EKG that was done. Chest xray. Resolved Problems Problem Noted Date Diagnosed Date Resolved Date Irregular heart beats 03/08/20212021 Immunizations Name Administration Dates Next Due Influenza, Unspecified 01/22/2021,02/06/2020(Def erred: Patient Refused) Social History Tobacco Use Types Packs/Day Years Used Date Smoking Tobacco: Never Smokeless Tobacco: Never PHQ-2 Answer Date Recorded PHQ-2 Total Score (If total score is 3 or more points, staff should administer the PHQ-9) 0 04/25/2021 Personal Safety Answer Date Recorded Getting School Help Needed Not on file 02/23 Comments No Sex and Gender Information Value Date Recorded Sex Assigned at Not on file Legal Sex Female 5:38 PM SEMICONDUCTOR PROCESSING GROUP LEADER Gender Identity Not on file Sexual Orientation Not on file Last Filed Vital Signs Vital Sign Reading Time Taken Comments Blood Pressure 116/76 04/25/2021 12:37 PM SEMICONDUCTOR PROCESSING GROUP LEADER Pulse 72 04/25/2021 12:37 PM SEMICONDUCTOR PROCESSING GROUP LEADER Temperature 36.4 ??C (97.5 ??F) 04/25/2021 12:[address] Respiratory Rate 18 04/25/2021 12:37 PM SEMICONDUCTOR PROCESSING GROUP LEADER Oxygen Saturation 97% 04/25/2021 12:37 PM SEMICONDUCTOR PROCESSING GROUP LEADER Inhaled Oxygen Concentration - - Weight 58.8 kg (129 lb 9.6 oz) 04/25/2021 12:37 PM SEMICONDUCTOR PROCESSING GROUP LEADER Height 150.5 cm (4' 11.25 ) 04/25/2021 12:37 PM SEMICONDUCTOR PROCESSING GROUP LEADER Body Mass Index 25.95 04/25/2021 12:37 PM SEMICONDUCTOR PROCESSING GROUP LEADER Plan of Treatment Not on file Insurance MEDICARE [facility] [place] [address] Care Teams Lab Director Relationship Specialty Start Date End Date Olegario Sunshine NP [address] [facility] [address] [place] [address] PCP - General Nurse Practitioner 03/03/21
--- OUTSIDE RECORDS SUMMARY | 2024-03-18 23:19 | XMS_ITS | Clinical Summary ---
Author Organization [facility] [address] [facility] Address [address] [place] [address] Care Team Providers Care Hull Molder Name Role Phone Adolph Gray DO Primary Care Provider [phone] Allergies Active Allergy Reactions Criticality Noted Date Comments Atorvastatin Hives High 01/17/2024 Sulfa (Sulfonamide Antibiotics) Itching Low 02/22 Sulfur Itching Low 03/05/2021 Medications aspirin (ECOTRIN EC) 81 mg Tablet, Delayed Release (E.C.) Take 81 mg by mouth daily. Active ascorbic acid, vitamin C, (VITAMIN C) 1,000 mg Tablet Take 1,000 mg by mouth daily. Active cyanocobalamin 1,000 mcg Tablet Take 1,000 mcg by mouth daily. Active simvastatin (ZOCOR) 40 mg tablet take one tablet by mouth daily 90 Tablet 3 07/23/2023 Active metoprolol tartrate (LOPRESSOR) 25 mg tablet TAKE ONE TABLET BY MOUTH TWICE A DAY 60 Tablet 3 01/17/2024 Active losartan-hydroCH LOROthiazide (HYZAAR) 50-12.5 mg tablet Take 1 Tablet by mouth daily. 12/06/2023 Active cholecalciferol, Vitamin D3, 50 mcg (2,000 unit) Tablet Take 2,000 Units by mouth daily. Active Active Problems Problem Noted Date Diagnosed Date Essential hypertension 01/05/2023 Pure hypercholesterolemia 01/05/2023 History of TIA (transient ischemic attack) 01/05 Encounters Date Type Department Care Team Description 01/17/2024 1:45 PM FIELD SCOUT Office Visit [facility] - [address] [facility] [address] [address] [facility] [address] [place] [address] Harsha Nieves MD Essential hypertension (Primary Dx); Pure hypercholesterolemia; History of TIA (transient ischemic attack) 01/17/2024 Refill [facility] - [address] [facility] [address] [address] [facility] [address] [place] [address] Harsha Nieves MD from Last 3 Months Family History Medical History Relation Name Comments Heart Surgery Father Relation Name Status Comments Father Social History Tobacco Use Types Packs/Day Years Used Date Smoking Tobacco: Never Smokeless Tobacco: Never Alcohol Use Standard Drinks/Week Comments Not Currently 0 (1 standard drink = 0.6 oz pure alcohol) 1 glass of wine every couple months.per pt. Comments Unknown Sex and Gender Information Value Date Recorded Sex Assigned at Not on file Legal Sex Female 10:50 AM CDT Gender Identity Not on file Sexual Orientation Not on file Last Filed Vital Signs Vital Sign Reading Time Taken Comments Blood Pressure 118/58 01/17/2024 1:34 PM FIELD SCOUT Pulse 56 01/17/2024 1:34 PM FIELD SCOUT Temperature - - Respiratory Rate - - Oxygen Saturation 98% 01/05/2023 8:59 AM FIELD SCOUT Inhaled Oxygen Concentration - - Weight 58.3 kg (128 lb 9.6 oz) 01/17/2024 1:34 P M FIELD SCOUT Height 147.3 cm (4' 10 ) 01/17/2024 1:34 PM FIELD SCOUT Body Mass Index 26.88 01/17/2024 1:34 PM FIELD SCOUT Plan of Treatment Upcoming Encounters Date Type Department Care Team (Late st Contact Info) Description 10/20/2024 10:00 AM CDT Office Visit [facility] - [address] [facility] [address] [address] [facility] [address] [place] [address] Nicolás Gould ANP [address] [facility] [address] [place] [address] Health Maintenance Due Date Last Done Comments DTAP/TDAP/TD VACCINES (1 - Tdap) 1957 PNEUMOCOCCAL VACCINE 65+ YEA RS (1 of 1 - PCV) 1988 ZOSTER VACCINE (1 of 2) 1988 RSV VACCINE (60+ or ) (1 - 1-dose 75+ series) 2013 INFLUENZA VACCINE (#1) 2023 OSTEOPOROSIS SCREENING Completed 07/21/2018 COLORECTAL SCREENING Discontinued 08/12/2018, 08/13/19 19 Colorectal Cancer Screening Discontinued FIT-DNA Q 3 years Discontinued FIT/FOBT Q 1 year Discontinued Flex Sig/CT Colonography Q 5 years Discontinued Procedures Procedure Name Priority Date/Time Associated Diagnosis Comments NJ ECG ROUTINE ECG W/LEAST 12 LDS W/I&R Routine 01/17/2024 1:45 PM FIELD SCOUT Essential hypertension Pure hypercholesterolemi a History of TIA (transient ischemic attack) from Last 3 Months Results * NJ ECG ROUTINE ECG W/LEAST 12 LDS W/I&R (01/17/2024 1:45 PM FIELD SCOUT) Narrative [facility] - [address] [place] [address] - 01/17/2024 1:45 PM FIELD SCOUT Radha Tovar LPN ? 01/17/2024 ??2:11 PM EKG Date/Time: 01/17/2024 1:45 PM Performed by: Harsha Nieves MD Authorized by: Harsha Nieves MD ?? Procedure Note Radha Tovar LPN - 01/17/2024 1:39 PM CST EKG Date/Time: 01/17/2024 1:45 PM Performed by: Harsha Nieves MD Authorized by: Harsha Nieves MD Annotated Image us Harsha Nieves MD ECG ORDERABLES Edited Result - Final [facility] - [address] [place] [address] CLIA# [id number] [address] [address] from Last 3 Months Insurance MEDICARE PART A AND B [facility] Care Teams Hull Molder Relationship Specialty Start Date End Date Adolph Gray DO [address] [place] [address] PCP - General Family Practice 01/05/23
--- OUTSIDE RECORDS SUMMARY | 2024-03-18 23:19 | XMS_ITS | Clinical Summary ---
Author Organization [facility] [address] [place] Address [address] [place] [address] Care Team Providers Care Seat Joiner Chainstitch Name Role Phone Olegario Sunshine NP Primary Care Provider [phone] Allergies Active Allergy Reactions Criticality Noted Date Comments Sulfa Itching Low 03/05/2021 Medications lisinopril-hydroCHL OROthiazide (ZESTORETIC) 10-12.5 mg per tablet 1 Active vit D3-vit M-oaxxbilqy-floy [id number] mabr-vwg-rb-mg tablet Take by mouth Active zinc 50 [...] tolerated Assessment & Plan (04/17/2021 8:34 PM ENGINEERING JOB TITLES): States fatigue is better. Post has cut [...] explore. Assessment & Plan (03/08/2021 3:17 PM ENGINEERING JOB TITLES): Diary of sleep, looking at quality of [...] basis. Assessment & Plan (04/17/2021 8:22 PM ENGINEERING JOB TITLES): CT of heas of without contrast. Continue to watch for changes in memory or function. Continiue with Baby ASA. Also will set up for bilateral carotid doppler Assessment & Plan (03/08/2021 3:23 PM ENGINEERING JOB TITLES): Lab today. Keep track of events Set [...] months Assessment & Plan (04/17/2021 8:32 PM ENGINEERING JOB TITLES): Continue with vitamin D3 as ordered. Will get set up for a bone density at [facility] as available Assessment & Plan (03/08/2021 3:07 PM ENGINEERING JOB TITLES): Lab today. Make sure she is eating [...] elevation Assessment & Plan (04/17/2021 8:24 PM ENGINEERING JOB TITLES): Hypertension stable at this time Continue medications as ordered Continue to watch diet for increased salt intake or salty foods no added salt at this time. Exercise, at least 3 times per week, for 30 minutes or as tolerated Assessment & Plan (03/08/2021 2:58 PM ENGINEERING JOB TITLES): Continue with medications as ordred. Watch diet [...] on. Assessment & Plan (04/17/2021 8:31 PM ENGINEERING JOB TITLES): Still having irregular heartbeat, lasting only a few minutes. Talked with patient about options to care noting past lab results were good. Next step would to get a Holter monitor, 2D echocardiogram with color flow, to refer to assistant executive housekeeper. Will get CT and carotid Doppler done 1st. Unless palpitations become more frequently distress to the patient if there is any chest pain shortness of breath diaphoresis to go straight to the emergency room. Prefer that she goes to [facility], and ask for Dr. Luna or Dr. Watters or Saida.. Assessment & Plan (03/08/2021 3:06 PM ENGINEERING JOB TITLES): Get old records for review. Lab today [...] Due Influenza, Unspecified 01/22/2021,02/06/2020(Def erred: Patient Refused) Surgical History Surgery Date Site/Laterality Comments SECTION SECTION SECTION Medical History Medical History Date Comments High cholesterol Family History Medical History Relation Name Comments No Known Problems Brother Heart disease Father Stroke Father No Known Problems Sister 1 No Known Problems Sister 2 Relation Name Status Comments Brother Alive Father Mother Sister 1 Alive Sister 2 Alive Social History Tobacco Use Types Packs/Day Years [...] on file Legal Sex Female 5:38 PM ENGINEERING JOB TITLES Gender Identity Not on file Sexual Orientation Not on file Obstetrics History Last Filed Vital Signs Vital Sign Reading Time Taken Comments Blood Pressure 116/76 04/25/2021 12:37 PM ENGINEERING JOB TITLES Pulse 72 04/25/2021 12:37 PM ENGINEERING JOB TITLES Temperature 36.4 ??C (97.5 ??F) 04/25/2021 12:[address] Respiratory Rate 18 04/25/2021 12:37 PM ENGINEERING JOB TITLES Oxygen Saturation 97% 04/25/2021 12:37 PM ENGINEERING JOB TITLES Inhaled Oxygen Concentration - - Weight 58.8 kg (129 lb 9.6 oz) 04/25/2021 12:37 PM ENGINEERING JOB TITLES Height 150.5 cm (4' 11.25 ) 04/25/2021 12:37 PM ENGINEERING JOB TITLES Body Mass Index 25.95 04/25/2021 12:37 PM ENGINEERING JOB TITLES Plan of Treatment Health Maintenance Due Date Last Done Comments Osteoporosis Screening-Bone Density Scan 1938 DTaP/Tdap/Td Vaccine (1 - Tdap) 1949 Hepatitis B Screening 1956 Zoster Vaccine (1 of 2) 1988 Pneumococcal vaccine 65+ (1 of 1 - PCV) 12/25/2003 Well Visit 65+ 12/25/2003 Depression Screening 04/25/2022 04/25/2021, 03/05/19 22 Fall Risk Assessment 04/25/2022 04/25/2021, 04/14/19 22 Covid-19 Vaccine ( season) 10/24/202301/2021, 04/12/2020 Influenza Vaccine (#1) 2023 01/22/2021 Insurance MEDICARE [facility] Care Teams Seat Joiner Chainstitch Relationship Specialty Start Date End Date Olegario Sunshine NP [address] [facility] [address] [place] [address] PCP - General Nurse Practitioner 03/03/21
[2024-03-18 23:24] VITALS: PULSE 62; RESP 16; O2SAT 98
--- NOTE | 2024-03-18 23:24 | ECG_ITS ---
Test Date: 2024-03-18 23:41:02 Measurements Intervals [place] Rate: 54 P: 26 [place]: 162 QRS: -10 QRSD: 98 T: 34 QT: 428 QTc: 407 Interpretive Statements SINUS BRADYCARDIA INCOMPLETE RIGHT BUNDLE BRANCH BLOCK [90+ ms QRS DURATION, TERMINAL R IN V1/V2, 40+ ms S IN I/aVL/V4/V5/V6] Compared to ECG 10/12/2023 19:11:33 Sinus rhythm no longer present Electronically Signed On 03-19-2024 22:11:52 SUSTAINABILITY PROJECT MANAGER by Shanelle Silva M.D.
[2024-03-18 23:30] VITALS: PULSE 64; RESP 20; O2SAT 96
--- NOTE | 2024-03-18 23:30 | PC.NURSE ---
DR BERGER AT THE BEDSIDE
[2024-03-18 23:31] VITALS: BP 151/80; PULSE 59; RESP 19; O2SAT 97
--- NOTE | 2024-03-18 23:31 | ED_ITS ---
HPI - Arrhythmia/Palpitations General Chief Complaint: Arrhythmia/Palpitations Stated Complaint: Cardiac Issues Time Seen by Provider: 03/18/24 23:24 Source: patient and family Mode of arrival: ambulatory Limitations: no limitations History of Present Illness HPI narrative: this is an 83-year-old female with a history of hypertension presents because a phone monitor is suggested that she had an episode of atrial fibrillation, patient is asymptomatic with no chest pain no shortness of breath no palpitations no nausea vomiting no diaphoresis and no fever chills. complaint: rapid heart beat Onset (ago): hour(s) Time: 23:32 Duration: now resolved Severity: mild Context: occurred during rest Arrhythmia history: atrial fibrillation Associated symptoms: denies other symptoms Related Data Home Medications ?Medication ?Instructions ?Recorded ?Confirmed ?Last Taken ?Type aspirin 81 mg tablet,delayed 81 mg PO DAILY 06/20/19 02/03/24 Unknown History release (Adult Aspirin Regimen) simvastatin 40 mg tablet 40 mg PO DAILY 08/04/22 02/03/24 Unknown History cholecalciferol (vitamin D3) 50 50 mcg PO DAILY 08/18/22 02/03/24 Unknown History mcg (2,000 unit) capsule mecobalamin (vitamin B12) 1,000 1,000 mcg PO DAILY 08/18/22 02/03/24 Unknown History mcg chewable tablet fluticasone propionate 50 1 spray intranasal DAILY PRN 01/18/24 02/03/24 Unknown History mcg/actuation nasal spray,suspension (Allergy Relief (fluticasone)) Allergies Allergy/AdvReac Type Severity Reaction Status Date / Time Sulfonamides Allergy Intermediate Unknown Uncoded 02/03/24 10:03 atorvastatin AdvReac Mild Itching Uncoded 02/03/24 10:03 Review of Systems Review of Systems: All systems reviewed & are unremarkable except as noted in HPI and below PMFSH Past Medical History Medical History Screening for diabetes mellitus HTN (hypertension) Hyperlipidemia Surgical History Surgical History History of lumpectomy x's 3 History of section, classical x3 Family History Family History Mother Family history unremarkable Father Heart disease Social History Social History Smoking status: Never smoker Alcohol intake: never Substance use type: does not use Lack of Transportation: No Lack of Food: Never True Current Housing: I Have Housing Concerned About Future Housing: No Difficulty Paying Gas/Electric Bills: No Difficulty Paying for Meds: No Currently Unemployed: No Education: High School Diploma/GED Difficulty w/ Childcare or Family Care: No Living arrangements: alone Occupation/Education: occupation Additional occupation/education comments: [employer] Gender identity (if verbalized by the patient): Female Sexual Orientation (if Verbalized by the Patient): Straight or Heterosexual Exam Const: General: healthy appearing, no acute distress and alert Nutritional Appearance: well nourished Limitations: no limitations Eyes: Conjunctivae: conjunctivae normal Pupils: Equal, round and reactive pupils present EOM: EOMs intact bilaterally Neck: Neck: normal visual inspection Chest: Chest palpation & inspection: normal inspection of the chest Resp: Effort & Inspection: normal respiratory effort Auscultation: clear to auscultation bilaterally Cardio: Rate: regular rate Rhythm: regular rhythm GI: GI Palp: Yes Soft to palpation Auscultation: normal bowel sounds : General: Yes bladder normal to palpation Extrem: General: normal to inspection, no clubbing, cyanosis or edema and no pedal edema Psych: Mental Status: mental status grossly normal Course Course Emergency Course: Patient is asymptomatic symptoms of AFib have resolved heart rate is 63 and regular EKG shows normal sinus rhythm. Vital Signs Vital signs: Vital Signs Temperature 36.4 C 03/18/24 23:18 Pulse Rate 63 03/18/24 23:18 Respiratory Rate 18 03/18/24 23:18 Blood Pressure 153/71 H 03/18/24 23:18 Pulse Oximetry 97 03/18/24 23:18 Oxygen Delivery Room Air 03/18/24 23:18 Temperature 36.4 C 03/18/24 23:18 Pulse Rate 63 03/18/24 23:18 Respiratory Rate 18 03/18/24 23:18 Blood Pressure 153/71 H 03/18/24 23:18 Pulse Oximetry 97 03/18/24 23:18 Oxygen Delivery Room Air 03/18/24 23:18 Critical Care Time Critical Care Time Critical Care Time: No Discharge Plan Discharge Clinical Impression: Palpitations Patient Disposition: Home, Self-Care Condition: Stable Instructions: Antibiotic Form, Heart Palpitations (ED) Additional Instructions: advised patient to follow with her pull out operator within the next 3 to 4 days for further evaluation and treatment. Patient Language: Nepalese Prescriptions: No Action metoprolol tartrate 25 mg tablet 25 mg PO BID Qty: 14 0RF simvastatin 40 mg tablet 40 mg PO DAILY cholecalciferol (vitamin D3) 50 mcg (2,000 unit) capsule 50 mcg PO DAILY mecobalamin (vitamin B12) 1,000 mcg tablet,chewable 1,000 mcg PO DAILY losartan-hydrochlorothiazide 50-12.5 mg tablet 1 tablet PO DAILY Qty: 90 3RF aspirin [Adult Aspirin Regimen] 81 mg tablet,delayed release (DR/EC) 81 mg PO DAILY fluticasone propionate [Allergy Relief (fluticasone)] 50 mcg/actuation spray,suspension 1 spray intranasal DAILY PRN Rx Instructions: administer into each nostril ipratropium bromide 42 mcg (0.06 %) spray,non-aerosol 2 spray intranasal TID Qty: 15 5RF Rx Instructions: administer into each nostril Follow-up/Referrals: Kelle Delaney [employer] [employer] [Primary Care Provider] -
--- NOTE | 2024-03-18 23:36 | PC.NURSE ---
EBONY BAUTISTA, AT THE BEDSIDE FOR EKG
--- NOTE | 2024-03-18 23:43 | PC.NURSE ---
FAMILY MEMBER AT THE BEDSIDE. DENIES ANY OTHER NEEDS. CALL LIGHT IN REACH
[2024-03-18 23:45] VITALS: PULSE 61; RESP 14; O2SAT 94
[2024-03-18 23:46] VITALS: BP 126/52; PULSE 61; RESP 18
--- OUTSIDE RECORDS SUMMARY | 2024-03-18 23:47 | XMS_ITS | Referral Summary ---
Author Organization [facility] [address] Address [address] [place] [id number] Care Team Providers Care Benefits Consulting Analyst Name Role Phone Olegario Sunshine NP Primary Care Provider [phone] Allergies Active Allergy Reactions Criticality Noted Date Comments Sulfa Itching Low 03/05/2021 Medications lisinopril-hydroCHL OROthiazide (ZESTORETIC) 10-12.5 mg per tablet 1 Active vit D3-vit M-fzgfmwbcm-wety [id number] kovh-kqp-bw-mg tablet Take by mouth Active zinc 50 [...] tolerated Assessment & Plan (04/17/2021 8:34 PM LINE HELPER): States fatigue is better. Post has cut [...] explore. Assessment & Plan (03/08/2021 3:17 PM LINE HELPER): Diary of sleep, looking at quality of [...] basis. Assessment & Plan (04/17/2021 8:22 PM LINE HELPER): CT of heas of without contrast. Continue to watch for changes in memory or function. Continiue with Baby ASA. Also will set up for bilateral carotid doppler Assessment & Plan (03/08/2021 3:23 PM LINE HELPER): Lab today. Keep track of events Set [...] months Assessment & Plan (04/17/2021 8:32 PM LINE HELPER): Continue with vitamin D3 as ordered. Will get set up for a bone density at [facility] as available Assessment & Plan (03/08/2021 3:07 PM LINE HELPER): Lab today. Make sure she is eating [...] elevation Assessment & Plan (04/17/2021 8:24 PM LINE HELPER): Hypertension stable at this time Continue medications as ordered Continue to watch diet for increased salt intake or salty foods no added salt at this time. Exercise, at least 3 times per week, for 30 minutes or as tolerated Assessment & Plan (03/08/2021 2:58 PM LINE HELPER): Continue with medications as ordred. Watch diet [...] on. Assessment & Plan (04/17/2021 8:31 PM LINE HELPER): Still having irregular heartbeat, lasting only a few minutes. Talked with patient about options to care noting past lab results were good. Next step would to get a Holter monitor, 2D echocardiogram with color flow, to refer to microarray specialist. Will get CT and carotid Doppler done 1st. Unless palpitations become more frequently distress to the patient if there is any chest pain shortness of breath diaphoresis to go straight to the emergency room. Prefer that she goes to [facility], and ask for Dr. Luna or Dr. Watters or Saida.. Assessment & Plan (03/08/2021 3:06 PM LINE HELPER): Get old records for review. Lab today [...] on file Legal Sex Female 5:38 PM LINE HELPER Gender Identity Not on file Sexual Orientation Not on file Last Filed Vital Signs Vital Sign Reading Time Taken Comments Blood Pressure 116/76 04/25/2021 12:37 PM LINE HELPER Pulse 72 04/25/2021 12:37 PM LINE HELPER Temperature 36.4 ??C (97.5 ??F) 04/25/2021 12:[address] Respiratory Rate 18 04/25/2021 12:37 PM LINE HELPER Oxygen Saturation 97% 04/25/2021 12:37 PM LINE HELPER Inhaled Oxygen Concentration - - Weight 58.8 kg (129 lb 9.6 oz) 04/25/2021 12:37 PM LINE HELPER Height 150.5 cm (4' 11.25 ) 04/25/2021 12:37 PM LINE HELPER Body Mass Index 25.95 04/25/2021 12:37 PM LINE HELPER Plan of Treatment Not on file Insurance MEDICARE [facility] [place] [address] Care Teams Benefits Consulting Analyst Relationship Specialty Start Date End Date Olegario Sunshine NP [address] [facility] [address] [place] [address] PCP - General Nurse Practitioner 03/03/21
--- OUTSIDE RECORDS SUMMARY | 2024-03-18 23:47 | XMS_ITS | Clinical Summary ---
Author Organization [facility] [address] Address [address] [place] [phone] Care Team Providers Care Canal Superintendent Name Role Phone Olegario Sunshine NP Primary Care Provider [phone] Allergies Active Allergy Reactions Criticality Noted Date Comments Sulfa Itching Low 03/05/2021 Medications lisinopril-hydroCHL OROthiazide (ZESTORETIC) 10-12.5 mg per tablet 1 Active vit D3-vit J-hgrqrjuly-bwqt [id number] poli-nwp-zb-mg tablet Take by mouth Active zinc 50 [...] tolerated Assessment & Plan (04/17/2021 8:34 PM VELVET WEAVER): States fatigue is better. Post has cut [...] explore. Assessment & Plan (03/08/2021 3:17 PM VELVET WEAVER): Diary of sleep, looking at quality of [...] basis. Assessment & Plan (04/17/2021 8:22 PM VELVET WEAVER): CT of heas of without contrast. Continue to watch for changes in memory or function. Continiue with Baby ASA. Also will set up for bilateral carotid doppler Assessment & Plan (03/08/2021 3:23 PM VELVET WEAVER): Lab today. Keep track of events Set [...] months Assessment & Plan (04/17/2021 8:32 PM VELVET WEAVER): Continue with vitamin D3 as ordered. Will get set up for a bone density at [facility] as available Assessment & Plan (03/08/2021 3:07 PM VELVET WEAVER): Lab today. Make sure she is eating [...] elevation Assessment & Plan (04/17/2021 8:24 PM VELVET WEAVER): Hypertension stable at this time Continue medications as ordered Continue to watch diet for increased salt intake or salty foods no added salt at this time. Exercise, at least 3 times per week, for 30 minutes or as tolerated Assessment & Plan (03/08/2021 2:58 PM VELVET WEAVER): Continue with medications as ordred. Watch diet [...] on. Assessment & Plan (04/17/2021 8:31 PM VELVET WEAVER): Still having irregular heartbeat, lasting only a few minutes. Talked with patient about options to care noting past lab results were good. Next step would to get a Holter monitor, 2D echocardiogram with color flow, to refer to formula checker. Will get CT and carotid Doppler done 1st. Unless palpitations become more frequently distress to the patient if there is any chest pain shortness of breath diaphoresis to go straight to the emergency room. Prefer that she goes to [facility], and ask for Dr. Luna or Dr. Watters or Saida.. Assessment & Plan (03/08/2021 3:06 PM VELVET WEAVER): Get old records for review. Lab today [...] on file Legal Sex Female 5:38 PM VELVET WEAVER Gender Identity Not on file Sexual Orientation Not on file Obstetrics History Last Filed Vital Signs Vital Sign Reading Time Taken Comments Blood Pressure 116/76 04/25/2021 12:37 PM VELVET WEAVER Pulse 72 04/25/2021 12:37 PM VELVET WEAVER Temperature 36.4 ??C (97.5 ??F) 04/25/2021 12:[address] Respiratory Rate 18 04/25/2021 12:37 PM VELVET WEAVER Oxygen Saturation 97% 04/25/2021 12:37 PM VELVET WEAVER Inhaled Oxygen Concentration - - Weight 58.8 kg (129 lb 9.6 oz) 04/25/2021 12:37 PM VELVET WEAVER Height 150.5 cm (4' 11.25 ) 04/25/2021 12:37 PM VELVET WEAVER Body Mass Index 25.95 04/25/2021 12:37 PM VELVET WEAVER Plan of Treatment Health Maintenance Due Date [...] Influenza Vaccine (#1) 2023 01/22/2021 Insurance MEDICARE [facility] Care Teams Canal Superintendent Relationship Specialty Start Date End Date Olegario Sunshine NP [address] [facility] [address] [place] [address] PCP - General Nurse Practitioner 03/03/21
--- OUTSIDE RECORDS SUMMARY | 2024-03-18 23:47 | XMS_ITS | Clinical Summary ---
Author Organization [facility] [address] [facility] Address [address] [place] [address] Care Team Providers Care Ethylene Plant Helper Name Role Phone Adolph Gray DO Primary Care Provider [phone] Allergies Active Allergy Reactions Criticality Noted Date [...] Department Care Team Description 01/17/2024 1:45 PM MERCHANDISE COMPLAINT ADJUSTER Office Visit [facility] Heart and Vascular - [address] [facility] [address] [address] [facility] [address] [place] [address] Harsha Nieves MD Essential hypertension (Primary Dx); Pure hypercholesterolemia; History of TIA (transient ischemic attack) 01/17/2024 Refill [facility] Heart and Vascular - [address] [facility] [address] [address] [facility] [address] [place] [address] Harsha Nieves MD from Last [...] Comments Blood Pressure 118/58 01/17/2024 1:34 PM MERCHANDISE COMPLAINT ADJUSTER Pulse 56 01/17/2024 1:34 PM MERCHANDISE COMPLAINT ADJUSTER Temperature - - Respiratory Rate - - Oxygen Saturation 98% 01/05/2023 8:59 AM MERCHANDISE COMPLAINT ADJUSTER Inhaled Oxygen Concentration - - Weight 58.3 kg (128 lb 9.6 oz) 01/17/2024 1:34 P M MERCHANDISE COMPLAINT ADJUSTER Height 147.3 cm (4' 10 ) 01/17/2024 1:34 PM MERCHANDISE COMPLAINT ADJUSTER Body Mass Index 26.88 01/17/2024 1:34 PM MERCHANDISE COMPLAINT ADJUSTER Plan of Treatment Upcoming Encounters Date Type Department Care Team (Late st Contact Info) Description 10/20/2024 10:00 AM CDT Office Visit [facility] Heart and Vascular - [address] [facility] [address] [address] [facility] [address] [place] [address] Nicolás Gould ANP [address] [facility] [address] [place] [address] Health Maintenance Due Date Last [...] Procedure Name Priority Date/Time Associated Diagnosis Comments ID ECG ROUTINE ECG W/LEAST 12 LDS W/I&R Routine 01/17/2024 1:45 PM MERCHANDISE COMPLAINT ADJUSTER Essential hypertension Pure hypercholesterolemi a History of TIA (transient ischemic attack) from Last 3 Months Results * ID ECG ROUTINE ECG W/LEAST 12 LDS W/I&R (01/17/2024 1:45 PM MERCHANDISE COMPLAINT ADJUSTER) Narrative [facility] HEART AND VASCULAR - [address] [place] [address] - 01/17/2024 1:45 PM MERCHANDISE COMPLAINT ADJUSTER Radha Tovar LPN ? 01/17/2024 ??2:11 PM EKG Date/Time: 01/17/2024 1:45 PM Performed by: Harsha Nieves MD Authorized by: Harsha Nieves MD ?? Procedure Note Radha Tovar LPN - 01/17/2024 1:39 PM CST EKG Date/Time: 01/17/2024 1:45 PM Performed by: Harsha Nieves MD Authorized by: Harsha Nieves MD Annotated Image us Harsha Nieves MD ECG ORDERABLES Edited Result - Final [facility] HE[facility] AND [facility]ASCULAR - [address] [place] [address] CLIA# [id number] [address] [address] from Last 3 Months Insurance MEDICARE PART A AND B [facility] Care Teams Ethylene Plant Helper Relationship Specialty Start Date End Date Adolph Gray DO [address] [place] [address] PCP - General Family Practice 01/05/23
--- OUTSIDE RECORDS SUMMARY | 2024-03-18 23:47 | XMS_ITS | Clinical Summary ---
Author Organization [facility] Address [facility] [facility] [place] [address] [place] [address] Care Team Providers Care Floor Helper Name Role Phone Olegario Sunshine MIRI Primary Care Provider [phone] Allergies No known active allergies Medications ondansetron [...] [place] [id number] [employer] Care Teams Floor Helper Relationship Specialty Start Date End Date Olegario Sunshine FNP [facility] [place] [address] PCP - General Nurse Practitioner Family 05/30/21
--- NOTE | 2024-03-18 23:53 | PC.NURSE ---
WENT DOWN TO ROOM, PATIENT HAD REMOVED HERSELF FROM THE MONITOR AND STARTED GETTING DRESSED.
== END 2024-03-18 23:53 | disposition home or self-care (01) ==
LOC: CHSED 23:45
PROVIDERS: Emergency Provider Emergency Medicine; PCP Nurse Practitioner Family
DX: R00.2 Palpitations (principal); I10 Essential (primary) hypertension; E78.5 Hyperlipidemia, unspecified
CPT/HCPCS: 93005; 99283

== ENCOUNTER 2024-07-03 11:43 | Outpatient (CLI) | payer MEDICARE, OTHER, SELFPAY ==
--- NOTE | ~2024-07-03 | MM_ITS ---
EXAMINATION: MM screening tata BI w aileen HISTORY: Screening mammogram TECHNIQUE: Craniocaudal and mediolateral oblique 3-D tomosynthesis images were obtained and synthetic 2-D images were generated. CAD analysis was submitted and interpreted. COMPARISON: 05/10/2023, 11/11/2021 a 06/18/2020 BREAST PARENCHYMAL COMPOSITION:Dense: The breasts are heterogeneously dense, which may obscure small masses. FINDINGS: No suspicious mass, calcification, or architectural distortion are identified in either yolanda ast to suggest malignancy. There has been no suspicious interval change. IMPRESSION: No mammographic evidence of malignancy. Recommend routine screening mammography in one year. BI-RADS Category 1: Negative Reviewed, dictated and finalized at location .
--- OUTSIDE RECORDS SUMMARY | 2024-07-03 11:46 | XMS_ITS | Referral Summary ---
Author Organization [facility] [address] Address [address] [place] [phone] Care Team Providers Care Legal Records Clerk Name Role Phone Olegario Sunshine NP Primary Care Provider [phone] Allergies Active Allergy Reactions Criticality Noted Date Comments Sulfa Itching Low 03/05/2021 Medications lisinopril-hydroCHL OROthiazide (ZESTORETIC) 10-12.5 mg per tablet 1 Active vit D3-vit C-lxdpgedbe-jrjw [id number] hyva-ynr-cv-mg tablet Take by mouth Active zinc 50 [...] tolerated Assessment & Plan (04/17/2021 8:34 PM INFORMATION CONSULTANT): States fatigue is better. Post has cut [...] explore. Assessment & Plan (03/08/2021 3:17 PM INFORMATION CONSULTANT): Diary of sleep, looking at quality of [...] basis. Assessment & Plan (04/17/2021 8:22 PM INFORMATION CONSULTANT): CT of heas of without contrast. Continue to watch for changes in memory or function. Continiue with Baby ASA. Also will set up for bilateral carotid doppler Assessment & Plan (03/08/2021 3:23 PM INFORMATION CONSULTANT): Lab today. Keep track of events Set [...] months Assessment & Plan (04/17/2021 8:32 PM INFORMATION CONSULTANT): Continue with vitamin D3 as ordered. Will get set up for a bone density at [facility] as available Assessment & Plan (03/08/2021 3:07 PM INFORMATION CONSULTANT): Lab today. Make sure she is eating [...] elevation Assessment & Plan (04/17/2021 8:24 PM INFORMATION CONSULTANT): Hypertension stable at this time Continue medications as ordered Continue to watch diet for increased salt intake or salty foods no added salt at this time. Exercise, at least 3 times per week, for 30 minutes or as tolerated Assessment & Plan (03/08/2021 2:58 PM INFORMATION CONSULTANT): Continue with medications as ordred. Watch diet [...] on. Assessment & Plan (04/17/2021 8:31 PM INFORMATION CONSULTANT): Still having irregular heartbeat, lasting only a few minutes. Talked with patient about options to care noting past lab results were good. Next step would to get a Holter monitor, 2D echocardiogram with color flow, to refer to wood and wood products factory worker. Will get CT and carotid Doppler done 1st. Unless palpitations become more frequently distress to the patient if there is any chest pain shortness of breath diaphoresis to go straight to the emergency room. Prefer that she goes to [facility], and ask for Dr. Luna or Dr. Watters or Saida.. Assessment & Plan (03/08/2021 3:06 PM INFORMATION CONSULTANT): Get old records for review. Lab today Keep track of irregular heart beats when and where beats occur. Possible cause and how long does it last. Avoid stimulents, chocolate, Strong coffee, power drinks, etc. Set up for echocardiogram. Get baseline EKG that was done. Chest xray. Resolved Problems Problem Noted Date Diagnosed Date Resolved Date Irregular heart beats 03/08/20212021 Immunizations Immunization Administration Dates Next Due Influenza, Unspecified 01/22/2021,02/06/2020(Def [...] on file Legal Sex Female 5:38 PM INFORMATION CONSULTANT Gender Identity Not on file Sexual Orientation Not on file Last Filed Vital Signs Vital Sign Reading Time Taken Comments Blood Pressure 116/76 04/25/2021 12:37 PM INFORMATION CONSULTANT Pulse 72 04/25/2021 12:37 PM INFORMATION CONSULTANT Temperature 36.4 C (97.5 F) 04/25/2021 12:37 PM INFORMATION CONSULTANT Respiratory Rate 18 04/25/2021 12:37 PM INFORMATION CONSULTANT Oxygen Saturation 97% 04/25/2021 12:37 PM INFORMATION CONSULTANT Inhaled Oxygen Concentration - - Weight 58.8 kg (129 lb 9.6 oz) 04/25/2021 12:37 PM INFORMATION CONSULTANT Height 150.5 cm (4' 11.25 ) 04/25/2021 12:37 PM INFORMATION CONSULTANT Body Mass Index 25.95 04/25/2021 12:37 PM INFORMATION CONSULTANT Plan of Treatment Not on file Insurance MEDICARE [facility] [place] [address] Care Teams Legal Records Clerk Relationship Specialty Start Date End Date Olegario Sunshine NP [address] [address] PCP - General Nurse Practitioner 03/03/21
--- OUTSIDE RECORDS SUMMARY | 2024-07-03 11:46 | XMS_ITS | Clinical Summary ---
Author Organization [facility] [address] Address [address] [place] [address] Care Team Providers Care Curriculum Designer Name Role Phone Olegario Sunshine NP Primary Care Provider [phone] Allergies Active Allergy Reactions Criticality Noted Date Comments Sulfa Itching Low 03/05/2021 Medications lisinopril-hydroCHL OROthiazide (ZESTORETIC) 10-12.5 mg per tablet 1 Active vit D3-vit Z-gyvhqykjr-wytx [id number] iomr-hee-ii-mg tablet Take by mouth Active zinc 50 [...] tolerated Assessment & Plan (04/17/2021 8:34 PM REPAIRER PUMP): States fatigue is better. Post has cut [...] explore. Assessment & Plan (03/08/2021 3:17 PM REPAIRER PUMP): Diary of sleep, looking at quality of [...] basis. Assessment & Plan (04/17/2021 8:22 PM REPAIRER PUMP): CT of heas of without contrast. Continue to watch for changes in memory or function. Continiue with Baby ASA. Also will set up for bilateral carotid doppler Assessment & Plan (03/08/2021 3:23 PM REPAIRER PUMP): Lab today. Keep track of events Set [...] months Assessment & Plan (04/17/2021 8:32 PM REPAIRER PUMP): Continue with vitamin D3 as ordered. Will get set up for a bone density at [facility] as available Assessment & Plan (03/08/2021 3:07 PM REPAIRER PUMP): Lab today. Make sure she is eating [...] elevation Assessment & Plan (04/17/2021 8:24 PM REPAIRER PUMP): Hypertension stable at this time Continue medications as ordered Continue to watch diet for increased salt intake or salty foods no added salt at this time. Exercise, at least 3 times per week, for 30 minutes or as tolerated Assessment & Plan (03/08/2021 2:58 PM REPAIRER PUMP): Continue with medications as ordred. Watch diet [...] on. Assessment & Plan (04/17/2021 8:31 PM REPAIRER PUMP): Still having irregular heartbeat, lasting only a few minutes. Talked with patient about options to care noting past lab results were good. Next step would to get a Holter monitor, 2D echocardiogram with color flow, to refer to churn operator. Will get CT and carotid Doppler done 1st. Unless palpitations become more frequently distress to the patient if there is any chest pain shortness of breath diaphoresis to go straight to the emergency room. Prefer that she goes to [facility], and ask for Dr. Luna or Dr. Watters or Saida.. Assessment & Plan (03/08/2021 3:06 PM REPAIRER PUMP): Get old records for review. Lab today [...] on file Legal Sex Female 5:38 PM REPAIRER PUMP Gender Identity Not on file Sexual Orientation Not on file Obstetrics History Last Filed Vital Signs Vital Sign Reading Time Taken Comments Blood Pressure 116/76 04/25/2021 12:37 PM REPAIRER PUMP Pulse 72 04/25/2021 12:37 PM REPAIRER PUMP Temperature 36.4 C (97.5 F) 04/25/2021 12:37 PM REPAIRER PUMP Respiratory Rate 18 04/25/2021 12:37 PM REPAIRER PUMP Oxygen Saturation 97% 04/25/2021 12:37 PM REPAIRER PUMP Inhaled Oxygen Concentration - - Weight 58.8 kg (129 lb 9.6 oz) 04/25/2021 12:37 PM REPAIRER PUMP Height 150.5 cm (4' 11.25 ) 04/25/2021 12:37 PM REPAIRER PUMP Body Mass Index 25.95 04/25/2021 12:37 PM REPAIRER PUMP Plan of Treatment Not on file Insurance MEDICARE [facility] Care Teams Curriculum Designer Relationship Specialty Start Date End Date Olegario Sunshine NP [address] [place] [id number] PCP - General Nurse Practitioner 03/03/21
--- OUTSIDE RECORDS SUMMARY | 2024-07-03 11:46 | XMS_ITS | Clinical Summary ---
Author Organization [facility] [address] [facility] Address [address] [place] [address] Care Team Providers Care Senior Service Aide Name Role Phone Adolph Gray DO Primary Care Provider [phone] Allergies Active Allergy Reactions Criticality Noted Date [...] tablet by mouth daily 90 Tablet 3 4 Active losartan-hydroC HLOROthiazide (HYZAAR) 50-12.5 mg tablet Take 1 Tablet by mouth daily. 4 Active cholecalciferol , Vitamin D3, 50 mcg (2,000 unit) Tablet Take 2,000 Units by mouth daily. Active metoprolol tartrate (LOPRESSOR) 25 mg tablet TAKE ONE TABLET BY MOUTH TWICE A DAY 60 Tablet 3 5 Active metoprolol tartrate (LOPRESSOR) 25 mg tablet TAKE ONE TABLET BY MOUTH TWICE A DAY 60 Tablet 3 4 06/23/19 25 Discontinued Active Problems Problem Noted Date Diagnosed Date Essential hypertension 01/05/2023 Pure hypercholesterolemia 01/05/2023 History of TIA (transient ischemic attack) 01/05 Encounters Date Type Department Care Team Description 06/22/2024 Refill [facility] Heart and Vascular - [address] [facility] [address] [address] [facility] [address] [place] [address] Harsha Nieves MD 04/12/2024 External Device Data STL ABSTRACTION Provider, Abstract from Last 3 Months Family History Medical [...] Comments Blood Pressure 118/58 01/17/2024 1:34 PM [facility] [facility]ATE Pulse 56 01/17/2024 1:34 PM [facility] Temperature - - Respiratory Rate - - Oxygen Saturation 98% 01/05/2023 8:59 AM [facility] Inhaled Oxygen Concentration - - Weight 58.3 kg (128 lb 9.6 oz) 01/17/2024 1:34 P M [facility] Height 147.3 cm (4' 10 ) 01/17/2024 1:34 PM [facility] Body Mass Index 26.88 01/17/2024 1:34 PM [facility] M[facility] Plan of Treatment Upcoming Encounters Date Type Department Care Team (Late st Contact Info) Description 10/20/2024 10:00 AM CDT Office Visit [facility] Heart and Vascular - [address] [facility] 300 [address] [facility] [address] [place] [address] Nicolás Gould ANP [address] [facility] [address] [place] [address] Health Maintenance Due Date Last Done Comments DTAP/TDAP/TD VACCINES (1 - Tdap) 1959 PNEUMOCOCCAL VACCINE 50+ YEA RS (1 of 1 - PCV) 1988 ZOSTER VACCINE (1 of 2) 1988 RSV VACCINE (60+ or ) (1 - 1-dose 75+ series) 2013 OSTEOPOROSIS SCREENING 07/22/2023 07/21/2018 INFLUENZA VACCINE (#1) 2023 COLORECTAL SCREENING Discontinued 08/12/2018, 08/13/19 19 Colorectal Cancer Screening Discontinued FIT-DNA Q 3 years Discontinued FIT/FOBT Q 1 year Discontinued Flex Sig/CT Colonography Q 5 years Discontinued Insurance MEDICARE PART A AND B [facility] Care Teams Senior Service Aide Relationship Specialty Start Date End Date Adolph Gray DO [address] [place] [address] PCP - General Family Practice 01/05/23
--- OUTSIDE RECORDS SUMMARY | 2024-07-03 11:46 | XMS_ITS | Clinical Summary ---
Author Organization [facility] Address [address] [place] [address] Care Team Providers Care Twister Frame Tender Name Role Phone Olegario Sunshine Pushpa REFUGE MANAGER Primary Care Provider [phone] Allergies No known active allergies Medications ondansetron [...] 94 05/30/2021 10:59 PM CDT Temperature 36.4 C (97.5 F) 05/30/2021 10:59 PM CDT Respiratory Rate 20 05/30/2021 10:5 [...] Td Vaccines ( 1 - Tdap) 1957 Pneumococcal Vaccine: 50+ Years (1 of 1 - PCV) 1988 Zoster Vaccines (1 of 2) 1988 Annual Medicare Wellness Visit 12/25/2003 RSV Immunization or 60+ Years (1 - 1-dose 75+ series) 2013 COVID-19 Vaccine (3 - 2023-2 5 season) 2023 05/03/2020, 04/12/2020 Meningococcal B Vaccine Aged Out No l onger eligible based on patient's age to complete this topic Meningococcal Vaccine Aged Out No edwige nena eligible based on patient's age to complete this topic RSV Immunizations Under 20 Months Aged Out No longer eligible b ased on patient's age to complete this topic Insurance MEDICARE [facility] [employer] Care Teams Twister Frame Tender Relationship Specialty Start Date End Date Olegario Sunshine FNP [address] [place] [address] PCP - General Nurse Practitioner Family 05/30/21
== END 2024-07-03 11:44 | disposition home or self-care (01) ==
LOC: CHSIMG 11:44
PROVIDERS: PCP Nurse Practitioner Family; Visit Provider Nurse Practitioner Family
DX: Z12.31 Encounter for screening mammogram for malignant neoplasm of breast (principal)
CPT/HCPCS: 77063; 77067

== ENCOUNTER 2024-10-06 11:21 | Emergency (ER) | payer MEDICARE, SELFPAY ==
--- NOTE | ~2024-10-06 | XR_ITS ---
EXAMINATION: XR chest 2V DATE: 10/06/2024 12:30 INDICATION: Dizziness TECHNIQUE: PA and lateral views of the chest were obtained. COMPARISON: Chest radiograph dated 10/12/2023 FINDINGS: Pulmonary vascular congestion and mild increased interstitial pattern with some peribronchial cuffing in the dependent lower lungs consistent with mild pulmonary edema. No pleural effusion or pneumothor ax. Mild cardiomegaly. Mild to moderate thoracic and upper lumbar spondylosis. IMPRESSION: 1. Likely congestive heart failure with mild cardiomegaly and mild pulmonary edema in the dependent l ower lungs. Reviewed, dictated and finalized at location A. IMPRESSION: 1. Likely congestive heart failure with mild cardiomegaly and mild pulmonary ed hugh in the dependent lower lungs.
--- NOTE | ~2024-10-06 | CT_ITS ---
EXAMINATION: CT brain wo con DATE: 10/06/2024 12:21 INDICATION: Episode of dizziness TECHNIQUE: Computed tomography (CT) of the head was performed without intravenous contrast. Sagittal and coronal reconstructions were performed. The mA was adjusted according to patient size. Iterative reconstruction technique was employed. The dose-length product was 605.33 mGy-cm. COMPARISON: head CT dated 04/23/2021 FINDINGS: No acute intracranial hemorrhage, acute infarction or abnormal extra axial fluid collection. There is minimal scattered white matter hypoattenuation consistent with chronic small vessel ischemic disease . Ventricles are normal and symmetric. No mass/mass effect. The orbits, paranasal sinuses and mastoi d air cells are normal. There is a densely calcified lesion situated in the fat peripheral to the pos terior lateral wall the left maxillary sinus suggesting a displaced tooth. Intracranial calcified cer ebral atherosclerosis is noted at the bilateral carotid siphons. IMPRESSION: 1. Normal aging brain with minimal scattered white matter hypoattenuation consistent with chronic sma ll vessel ischemic disease. No acute intracranial process. Reviewed, dictated and finalized at location A. IMPRESSION: 1. Normal aging brain with minimal scattered white matter hypoattenuation consi stent with chronic small vessel ischemic disease. No acute intracranial process .
--- OUTSIDE RECORDS SUMMARY | 2024-10-06 11:23 | XMS_ITS | Clinical Summary ---
Author Organization [facility] [address] Address [address] [place] [address] Care Team Providers Care Reconstructive Surgeon Name Role Phone Olegario Sunshine NP Primary Care Provider [phone] Allergies Active Allergy Reactions Criticality Noted Date Comments Sulfa Itching Low 03/05/2021 Medications lisinopril-hydroCHL OROthiazide (ZESTORETIC) 10-12.5 mg per tablet 1 Active vit D3-vit I-zqvqjzpio-mvsu [id number] idzp-zrk-ih-mg tablet Take by mouth Active zinc 50 [...] tolerated Assessment & Plan (04/17/2021 8:34 PM LICENSED DISPENSING OPTICIAN): States fatigue is better. Post has cut [...] explore. Assessment & Plan (03/08/2021 3:17 PM LICENSED DISPENSING OPTICIAN): Diary of sleep, looking at quality of [...] basis. Assessment & Plan (04/17/2021 8:22 PM LICENSED DISPENSING OPTICIAN): CT of heas of without contrast. Continue to watch for changes in memory or function. Continiue with Baby ASA. Also will set up for bilateral carotid doppler Assessment & Plan (03/08/2021 3:23 PM LICENSED DISPENSING OPTICIAN): Lab today. Keep track of events Set [...] months Assessment & Plan (04/17/2021 8:32 PM LICENSED DISPENSING OPTICIAN): Continue with vitamin D3 as ordered. Will get set up for a bone density at [facility] as available Assessment & Plan (03/08/2021 3:07 PM LICENSED DISPENSING OPTICIAN): Lab today. Make sure she is eating [...] elevation Assessment & Plan (04/17/2021 8:24 PM LICENSED DISPENSING OPTICIAN): Hypertension stable at this time Continue medications as ordered Continue to watch diet for increased salt intake or salty foods no added salt at this time. Exercise, at least 3 times per week, for 30 minutes or as tolerated Assessment & Plan (03/08/2021 2:58 PM LICENSED DISPENSING OPTICIAN): Continue with medications as ordred. Watch diet [...] on. Assessment & Plan (04/17/2021 8:31 PM LICENSED DISPENSING OPTICIAN): Still having irregular heartbeat, lasting only a few minutes. Talked with patient about options to care noting past lab results were good. Next step would to get a Holter monitor, 2D echocardiogram with color flow, to refer to switch crew supervisor. Will get CT and carotid Doppler done 1st. Unless palpitations become more frequently distress to the patient if there is any chest pain shortness of breath diaphoresis to go straight to the emergency room. Prefer that she goes to [facility], and ask for Dr. Luna or Dr. Watters or Saida.. Assessment & Plan (03/08/2021 3:06 PM LICENSED DISPENSING OPTICIAN): Get old records for review. Lab today [...] on file Legal Sex Female 5:38 PM LICENSED DISPENSING OPTICIAN Gender Identity Not on file Sexual Orientation Not on file Obstetrics History Last Filed Vital Signs Vital Sign Reading Time Taken Comments Blood Pressure 116/76 04/25/2021 12:37 PM LICENSED DISPENSING OPTICIAN Pulse 72 04/25/2021 12:37 PM LICENSED DISPENSING OPTICIAN Temperature 36.4 C (97.5 F) 04/25/2021 12:37 PM LICENSED DISPENSING OPTICIAN Respiratory Rate 18 04/25/2021 12:37 PM LICENSED DISPENSING OPTICIAN Oxygen Saturation 97% 04/25/2021 12:37 PM LICENSED DISPENSING OPTICIAN Inhaled Oxygen Concentration - - Weight 58.8 kg (129 lb 9.6 oz) 04/25/2021 12:37 PM LICENSED DISPENSING OPTICIAN Height 150.5 cm (4' 11.25) 04/25/2021 12:37 PM LICENSED DISPENSING OPTICIAN Body Mass Index 25.95 04/25/2021 12:37 PM LICENSED DISPENSING OPTICIAN Plan of Treatment Not on file Insurance MEDICARE [facility] Care Teams Reconstructive Surgeon Relationship Specialty Start Date End Date Olegario Sunshine NP [address] [place] [id number] PCP - General Nurse Practitioner 03/03/21
--- OUTSIDE RECORDS SUMMARY | 2024-10-06 11:23 | XMS_ITS | Clinical Summary ---
Author Organization [facility] Address [address] [place] [address] Care Team Providers Care Hot Die Picker Name Role Phone Olegario Sunshine Pushpa TOUR SALES REPRESENTATIVE Primary Care Provider [phone] Allergies No known active allergies Medications ondansetron [...] 10:59 PM CDT Height 147.3 cm (4' 10) 05/30/2021 10: 59 PM CDT Body Mass [...] age to complete this topic Insurance MEDICARE [facility] [employer] Care Teams Hot Die Picker Relationship Specialty Start Date End Date Olegario Sunshine FNP [address] [place] [address] PCP - General Nurse Practitioner Family 05/30/21
--- OUTSIDE RECORDS SUMMARY | 2024-10-06 11:24 | XMS_ITS | Clinical Summary ---
Author Organization [employer] [address] [facility] Address [address] [place] [address] Care Team Providers Care Tree Loader Meat Name Role Phone Adolph Gray DO Primary Care Provider [phone] Allergies Active Allergy Reactions Criticality Noted Date [...] Take 1,000 mcg by mouth daily. Active losartan-hydroCH LOROthiazide (HYZAAR) 50-12.5 mg tablet Take 1 Tablet by mouth daily. 12/06/2023 Active cholecalciferol, Vitamin D3, 50 mcg (2,000 unit) Tablet Take 2,000 Units by mouth daily. Active metoprolol tartrate (LOPRESSOR) 25 mg tablet TAKE ONE TABLET BY MOUTH TWICE A DAY 60 Tablet 3 06/22/2024 Active simvastatin (ZOCOR) 40 mg tablet TAKE ONE TABLET BY MOUTH DAILY 90 Tablet 3 07/05/2024 Active Active Problems Problem Noted Date Diagnosed Date Essential hypertension 01/05/2023 Pure hypercholesterolemia 01/05/2023 History of TIA (transient ischemic attack) 01/05 Encounters Date Type Department Care Team Description 09/27/2024 External Device Data STL ABSTRACTION Provider, Abstract 09/06/2024 External Device Data STL ABSTRACTION Provider, Abstract 09/06/2024 External Device Data STL ABSTRACTION Provider, Abstract 09/06/2024 External Device Data STL ABSTRACTION Provider, Abstract 08/09/2024 External Device Data STL ABSTRACTION Provider, Abstract 08/09/2024 External Device Data STL ABSTRACTION Provider, Abstract 07/18/2024 External Device Data STL ABSTRACTION Provider, Abstract 07/13/2024 External Device Data STL ABSTRACTION Provider, Abstract 07/12/2024 External Device Data STL ABSTRACTION Provider, Abstract [...] Comments Blood Pressure 118/58 01/17/2024 1:34 PM [employer]ER [employer] [facility]PAQUER Pulse 56 01/17/2024 1:34 PM INKER AND OPAQUER Temperature - - Respiratory Rate - - Oxygen Saturation 98% 01/05/2023 8:59 AM IN[facility]ER AND OPAQUER Inhaled Oxygen Concentration - - Weight 58.3 kg (128 lb 9.6 oz) 01/17/2024 1:34 P M [employer] [employer]QU[facility] Height 147.3 cm (4' 10) 01/17/2024 1:34 PM INKER AND OPAQUER Body Mass Index 26.88 01/17/2024 1:34 PM INKER AND OPAQUER Plan of Treatment Upcoming Encounters Date Type Department Care Team (Late st Contact Info) Description 10/10/2024 1:00 PM CDT Office Visit [facility] Heart and Vascular - [address] [facility] 300 [address] [facility] [address] [place] [address] Nicolás Gould ANP [address] [facility] [address] [place] [address] Health Maintenance Due Date Last Done Comments DTAP/TDAP/TD VACCINES (1 - Tdap) 1959 PNEUMOCOCCAL VACCINE 50+ YEA RS (1 of 1 - PCV) 1988 ZOSTER VACCINE (1 of 2) 1988 RSV VACCINE (60+ or ) (1 - 1-dose 75+ series) 2013 OSTEOPOROSIS SCREENING 07/22/2023 07/21/2018 INFLUENZA VACCINE (#1) 2024 COLORECTAL SCREENING Discontinued 08/12/2018, 08/13/19 19 Colorectal Cancer Screening Discontinued FIT-DNA Q 3 years Discontinued FIT/FOBT Q 1 year Discontinued Flex Sig/CT Colonography Q 5 years Discontinued Insurance MEDICARE PART A AND B [facility] Care Teams Tree Loader Meat Relationship Specialty Start Date End Date Adolph Gray DO [address] [place] [address] PCP - General Family Practice 01/05/23
[2024-10-06 11:25] VITALS: BP 162/58; PULSE 61; RESP 18; TEMP 36.5; O2SAT 95
--- NOTE | 2024-10-06 11:32 | ED_ITS ---
HPI - Dizziness General Chief Complaint: Dizziness Stated Complaint: dizzness Time Seen by Provider: 10/06/24 11:30 Source: patient Mode of arrival: ambulatory Limitations: no limitations History of Present Illness HPI Narrative: Patient is 83-year-old female with dizziness episode that started an hour ago that lasted 10 minutes. No associated nausea vomiting or diarrhea. No chest pain or shortness of breath. She has an uneasy feeling still at this time however the dizziness has resolved. No focal neurological deficits. MD elicited complaint: dizziness Pertinent past history: other ( AFib history paroxysmal and only takes aspirin and a beta-mary) Onset (ago): hour(s) ( 1) Timing: sudden onset Severity: mild Description: sense of movement and off-balance Context: other ( patient having acute onset of dizziness that lasted 10 minutes and has resolved but still feeling uneasy) History of similar symptoms: No Exacerbating factors: nothing and other ( none) Relieving factors: nothing Associated symptoms: other ( patient had excess thirst during the event) Associated neuro symptoms: other ( none) Related Data Home Medications ?Medication ?Instructions ?Recorded ?Confirmed ?Last Taken ?Type aspirin 81 mg tablet,delayed 81 mg PO DAILY 06/20/19 08/03/24 Unknown History release (Adult Aspirin Regimen) simvastatin 40 mg tablet 40 mg PO DAILY 08/04/22 08/03/24 Unknown History cholecalciferol (vitamin D3) 50 50 mcg PO DAILY 08/18/22 08/03/24 Unknown History mcg (2,000 unit) capsule mecobalamin (vitamin B12) 1,000 1,000 mcg PO DAILY 08/18/22 08/03/24 Unknown History mcg chewable tablet Allergies Allergy/AdvReac Type Severity Reaction Status Date / Time Sulfonamides Allergy Intermediate Unknown Uncoded 10/06/24 11:35 atorvastatin AdvReac Mild Itching Uncoded 10/06/24 11:35 Review of Systems 2 Review of Systems: All systems reviewed & are unremarkable except as noted in HPI and below Constitutional: Constitutional: Reports no additional constitutional complaints Eyes: Eyes: Reports no additional eye complaints ENT: Reports system reviewed and no additional complaints, except as documented Cardiovascular: Cardiovascular: Reports no additional cardiovascular complaints Respiratory: Respiratory: Reports no additional respiratory complaints Gastrointestinal: Gastrointestinal: Reports no additional gastrointestinal complaints Genitourinary: Genitourinary: Reports no additional female genitourinary complaints Musculoskeletal: Musculoskeletal: Reports no additional musculoskeletal complaints Integumentary/Breasts: Skin/Breast: Reports system reviewed and no additional complaints, except as docu Neurologic: Reports system reviewed and no additional complaints, except as documented Psychiatric: Psychiatric: Reports no additional psychiatric complaints Endocrine: Endocrine: Reports no additional endocrine complaints Hematologic/Lymphatic: Hematologic/Lymphatic: Reports no additional hematologic/lymphatic complaints Allergic/Immunologic: Allergic/Immunologic: Reports no additional allergic/immunologic complaints PMFSH Past Medical History Medical History Screening for diabetes mellitus HTN (hypertension) Hyperlipidemia Surgical History Surgical History History of lumpectomy x's 3 History of section, classical x3 Family History Family History Mother Family history unremarkable Father Heart disease Social History Social History Smoking status: Never smoker Alcohol intake: never Substance use type: does not use Lack of Transportation: No Lack of Food: Never True Current Housing: I Have Housing Concerned About Future Housing: No Difficulty Paying Gas/Electric Bills: No Difficulty Paying for Meds: No Currently Unemployed: No Education: High School Diploma/GED Difficulty w/ Childcare or Family Care: No Living arrangements: alone Occupation/Education: occupation Additional occupation/education comments: [employer] Gender identity (if verbalized by the patient): Female Sexual Orientation (if Verbalized by the Patient): Straight or Heterosexual Exam 2 Const: General: healthy appearing Nutritional Appearance: well nourished Orientation/consciousness: patient oriented x3 Limitations: no limitations HENMT: Head: normal to inspection Ears: TM's normal bilaterally F hero/Nose/Sinus: Normal external nose present Eyes: Conjunctivae: conjunctivae normal Pupils: Equal, round and reactive pupils present EOM: EOMs intact bilaterally Neck: Neck: normal visual inspection Chest: Chest palpation & inspection: normal inspection of the chest Resp: Effort & Inspection: normal respiratory effort and not labored A uscultation: clear to auscultation bilaterally and no crackles Cardio: Rate: regular rate Rhythm: regular rhythm ( occasional AFib heard but baseline underlying rhythm is normal sinus appea) Heart sounds: Murmur heart sound present ( 2/6 systolic murmur known to the patient due to valvular disease) GI: Inspection: non-distended GI Palp: Yes Soft to palpation and No Tenderness to palpation present (GI) Auscultation: normal bowel sounds : General: Yes bladder normal to palpation Back/Spine/Pelvis: Back: no CVA tenderness Skin: General skin exam: normal color Rashes: no rashes Wounds: no wounds Neuro: General: patient oriented x3, moves all extremities and no meningeal signs Cranial nerves: Yes Nystagmus not present Speech: normal speech G ait exam (Neuro): Normal gait present Other: fast exam negative, NIH score 0, GCS is 15 Extrem: General: normal to inspection Psych: Mental Status: mental status grossly normal Affect: normal affect Attitude: cooperative Course Vital Signs Vital signs: Vital Signs Temperature 36.5 C 10/06/24 11:25 Pulse Rate 61 10/06/24 11:25 Respiratory Rate 18 10/06/24 11:25 Blood Pressure 162/58 H 10/06/24 11:25 Pulse Oximetry 95 10/06/24 11:25 Oxygen Delivery Room Air 10/06/24 11:25 Temperature 36.6 C 10/06/24 12:51 Pulse Rate 89 10/06/24 12:51 Respiratory Rate 18 10/06/24 12:51 Blood Pressure 146/69 H 10/06/24 12:51 Pulse Oximetry 95 10/06/24 12:51 Oxygen Delivery Room Air 10/06/24 12:51 MDM - Dizziness MDM Narrative Medical decision making narrative: patient is an 83-year-old female with some dizziness acute onset today. She is still feeling uneasy at this time. Dizziness resolved. We will do a workup at this time and refer to Neurology when complete, if needed. chest x-ray showed possible CHF however patient is asymptomatic for CHF and has no edema and no history of CHF and BNP is low so all in all this is not appearance of CHF likely. Cardiac marker negative. Lab Data Attestation: I reviewed the patient's lab results. 10/06/24 11:59 10/06/24 11:59 Labs: Lab Results 10/06/24 10/06/24 Range/Units 11:45 11:59 WBC 4.8 (4.8-10.8) K/mm3 RBC 3.89 L (4.20-5.40) M/mm3 Hgb 12.9 (11.7-13.8) g/dL Hct 38.1 (35.0-42.0) % MCV 97.9 (78.0-102.0) fL MCH 33.2 H (27.0-31.0) pg MCHC 33.9 (32-36) g/dL RDW 12.1 (11.6-14.4) % Plt Count 184 (150-420) K/mm3 MPV 10.5 (9.2-11.8) fl Immature Gran % (Auto) 0.6 H (0.0-0.0) % Neut % (Auto) 67.4 (50.0-70.0) % Lymph % (Auto) 19.4 (18.0-42.0) % [place] % (Auto) 9.7 (2.0-11.0) % Eos % (Auto) 1.9 (1.0-6.0) % Baso % (Auto) 1.0 (0.0-1.0) % Lymph # (Auto) 0.94 L (1.10-4.50) K/mm3 [place] # (Auto) 0.47 (0.10-0.90) K/mm3 Eos # (Auto) 0.09 (0.02-0.50) K/mm3 Baso # (Auto) 0.05 (0.00-0.10) K/mm3 Abs Immat Gran (auto) 0.03 H (0.00-0.00) K/mm3 Absolute Neuts (auto) 3.26 (1.70-7.20) K/mm3 Absolute Nucleated RBC 0.00 (0.00-0.00) K/mm3 Nucleated RBC % 0.0 (0-0.0) % PT 10.2 (9.50-12.1) Seconds INR 0.9 APTT 24.5 (23.9-30.70) Sec Sodium 138 (137-145) mmol/L Potassium 4.0 (3.4-5.0) mmol/L Chloride 100 (98-107) mmol/L Carbon Dioxide 29 (22-30) mmol/L Anion Gap 9 (4-12) mmol/L BUN 21 H (7-17) mg/dL Creatinine 0.94 (0.7-1.0) mg/dL Estim Creat Clear Calc Not Reportable Estimated GFR 57 L (59 - ) Glucose 122 H (65-110) mg/dL Calculated Osmolality 290 (285-295) mOsm/kg Calcium 10.1 (8.4-10.2) mg/dL Total Bilirubin 1.2 (0.2-1.3) mg/dL AST 29 (14-36) U/L ALT 30 (6-35) U/L Alkaline Phosphatase 37 L (38-126) U/L Troponin I < 0.012 (0.000-0.034) ng/mL NT-Pro-B Natriuret Pep 232 H (19.9-100) pg/mL Total Protein 7.6 (6.3-8.2) g/dL Albumin 4.9 (3.5-5.1) g/dL Urine Color Light yellow (Yellow) Urine Appearance Clear (Clear) Urine pH 5.5 (5.0-8.0) Ur Specific [place] 1.010 (1.010-1.020) Urine Protein Negative (Negative) Urine Glucose (UA) Negative (Negative) Urine Ketones Negative (Negative) Ur Blood (Man) Trace-intact H (Negative) Urine Nitrate Negative (Negative) Urine Bilirubin Negative (Negative) Urine Urobilinogen 1.0 (0.2-1.0) mg/dL Leukocyte Esterase Rfl Negative (Negative) ELIAS/UL Imaging Data Attestation: I personally reviewed and interpreted this imaging study as follows: Radiologist's impression: Chest x-ray shows IMPRESSION: 1. Likely congestive heart failure with mild cardiomegaly and mild pulmonary edema in the dependent lower lungs. ECG Data EKG #1: Attestation: I personally reviewed and interpreted this ECG as follows: ECG completion date: 10/06/24 ECG completion time: 11:54 EKG Interpretation: bradycardia, sinus rhythm, no ectopy, no ST changes, normal QRS, normal QT and left axis Discharge Plan Discharge Clinical Impression: Dizziness Patient Disposition: Home Condition: Stable Instructions: Dizziness (ED) Patient Language: Nigerian Prescriptions: No Action metoprolol tartrate 25 mg tablet 25 mg PO BID Qty: 14 0RF simvastatin 40 mg tablet 40 mg PO DAILY cholecalciferol (vitamin D3) 50 mcg (2,000 unit) capsule 50 mcg PO DAILY mecobalamin (vitamin B12) 1,000 mcg tablet,chewable 1,000 mcg PO DAILY aspirin [Adult Aspirin Regimen] 81 mg tablet,delayed release (DR/EC) 81 mg PO DAILY losartan-hydrochlorothiazide 50-12.5 mg tablet See Rx Instructions .ROUTE .COMPLEX Qty: 90 0RF Dose Instruction: TAKE ONE TABLET BY MOUTH DAILY Rx Instructions: TAKE ONE TABLET BY MOUTH DAILY Follow-up/Referrals: Adolph Gray DO [Primary Care Provider] - Time of Disposition: 13:13
--- NOTE | 2024-10-06 11:44 | ECG_ITS ---
Test Date: 2024-10-06 11:50:56 Measurements Intervals [place] Rate: 57 P: 59 OK: 167 QRS: -20 QRSD: 95 T: 64 QT: 421 QTc: 411 Interpretive Statements SINUS BRADYCARDIA INCOMPLETE RIGHT BUNDLE BRANCH BLOCK DELAYED PRECORDIAL R/S TRANSITION BASELINE ARTIFACT- II, III BORDERLINE ECG Compared to ECG 03/18/2024 23:41:02 NO SIGNIFICANT CHANGE Electronically Signed On 10-06-2024 11:59:40 CDT by Vitaliy Osborne D.O.
[2024-10-06 11:53] LABS: Add Urine Microscopic? NO; Appearance Urine Clear (Clear); Glucose Urine UA Negative (Negative); Leukocyte Esterase Ur Negative LEU/UL (Negative); Nitrate Urine Negative (Negative); Specific Grav Ur 1.010 (1.010-1.020)
[2024-10-06 12:03] LABS: Hematocrit 38.1 % (35.0-42.0); Hemoglobin 12.9 g/dL (11.7-13.8); Immature Granulocyte Percent A 0.6 % (0.0-0.0); Lymphocytes Absolute Auto 0.94 K/mm3 (1.10-4.50); Mean Corpuscular HGB Conc 33.9 g/dL (32-36); Mean Corpuscular Hemoglobin 33.2 pg (27.0-31.0); Mean Corpuscular Volume 97.9 fL (78.0-102.0); Nucleated Red Blood Cells Absolute Auto 0.00 K/mm3 (0.00-0.00); Nucleated Red Blood Cells Perc 0.0 % (0-0.0); Platelet Count Result 184 K/mm3 (150-420); Red Blood Count 3.89 M/mm3 (4.20-5.40); White Blood Count 4.8 K/mm3 (4.8-10.8)
--- OUTSIDE RECORDS SUMMARY | 2024-10-06 12:10 | XMS_ITS | Clinical Summary ---
Author Organization [facility] Address [address] [place] [address] Care Team Providers Care Service Desk Specialist Name Role Phone Olegario Sunshine Pushpa CROP QUANTITATIVE GENETICIST Primary Care Provider [phone] Allergies No known active allergies Medications ondansetron [...] age to complete this topic Insurance MEDICARE [facility] [employer] Care Teams Service Desk Specialist Relationship Specialty Start Date End Date Olegario Sunshine FNP [address] [place] [address] PCP - General Nurse Practitioner Family 05/30/21
--- OUTSIDE RECORDS SUMMARY | 2024-10-06 12:10 | XMS_ITS | Clinical Summary ---
Author Organization [employer] [address] [facility] Address [address] [place] [address] Care Team Providers Care Sales Support Assistant Name Role Phone Adolph Gray DO Primary Care Provider [phone] Allergies Active Allergy Reactions Criticality Noted Date [...] Comments Blood Pressure 118/58 01/17/2024 1:34 PM [facility] Pulse 56 01/17/2024 1:34 PM [facility] Temperature - - Respiratory Rate - - Oxygen Saturation 98% 01/05/2023 8:59 AM [facility] Inhaled Oxygen Concentration - - Weight 58.3 kg (128 lb 9.6 oz) 01/17/2024 1:34 P M [facility] Height 147.3 cm (4' 10) 01/17/2024 1:34 PM [facility] Body Mass Index 26.88 01/17/2024 1:34 PM [facility] Plan of Treatment Upcoming Encounters Date Type Department Care Team (Late st Contact Info) Description 10/10/2024 1:00 PM CDT Office Visit [facility] - [address] [facility] [phone] [facility] [address] [place] [address] Nicolás Gould ANP [phone] [address] [facility] [address] [place] [address] Health Maintenance Due Date Last [...] MEDICARE PART A AND B [employer] [facility] Care Teams Sales Support Assistant Relationship Specialty Start Date End Date Adolph Gray DO [address] [place] [address] PCP - General Family Practice 01/05/23
--- OUTSIDE RECORDS SUMMARY | 2024-10-06 12:10 | XMS_ITS | Clinical Summary ---
Author Organization [facility] [address] Address [address] [place] [id number] Care Team Providers Care Tire Setter Name Role Phone Olegario Sunshine NP Primary Care Provider [phone] Allergies Active Allergy Reactions Criticality Noted Date Comments Sulfa Itching Low 03/05/2021 Medications lisinopril-hydroCHL OROthiazide (ZESTORETIC) 10-12.5 mg per tablet 1 Active vit D3-vit A-ktkhbkqeb-qmzl [id number] hpms-qvm-tx-mg tablet Take by mouth Active zinc 50 [...] tolerated Assessment & Plan (04/17/2021 8:34 PM ASSOCIATE DIRECTOR OF SALES): States fatigue is better. Post has cut [...] explore. Assessment & Plan (03/08/2021 3:17 PM ASSOCIATE DIRECTOR OF SALES): Diary of sleep, looking at quality of [...] basis. Assessment & Plan (04/17/2021 8:22 PM ASSOCIATE DIRECTOR OF SALES): CT of heas of without contrast. Continue to watch for changes in memory or function. Continiue with Baby ASA. Also will set up for bilateral carotid doppler Assessment & Plan (03/08/2021 3:23 PM ASSOCIATE DIRECTOR OF SALES): Lab today. Keep track of events Set [...] months Assessment & Plan (04/17/2021 8:32 PM ASSOCIATE DIRECTOR OF SALES): Continue with vitamin D3 as ordered. Will get set up for a bone density at [facility] as available Assessment & Plan (03/08/2021 3:07 PM ASSOCIATE DIRECTOR OF SALES): Lab today. Make sure she is eating [...] elevation Assessment & Plan (04/17/2021 8:24 PM ASSOCIATE DIRECTOR OF SALES): Hypertension stable at this time Continue medications as ordered Continue to watch diet for increased salt intake or salty foods no added salt at this time. Exercise, at least 3 times per week, for 30 minutes or as tolerated Assessment & Plan (03/08/2021 2:58 PM ASSOCIATE DIRECTOR OF SALES): Continue with medications as ordred. Watch diet [...] on. Assessment & Plan (04/17/2021 8:31 PM ASSOCIATE DIRECTOR OF SALES): Still having irregular heartbeat, lasting only a few minutes. Talked with patient about options to care noting past lab results were good. Next step would to get a Holter monitor, 2D echocardiogram with color flow, to refer to seed district sales manager. Will get CT and carotid Doppler done 1st. Unless palpitations become more frequently distress to the patient if there is any chest pain shortness of breath diaphoresis to go straight to the emergency room. Prefer that she goes to [facility], and ask for Dr. Luna or Dr. Watters or Saida.. Assessment & Plan (03/08/2021 3:06 PM ASSOCIATE DIRECTOR OF SALES): Get old records for review. Lab today [...] on file Legal Sex Female 5:38 PM ASSOCIATE DIRECTOR OF SALES Gender Identity Not on file Sexual Orientation Not on file Obstetrics History Last Filed Vital Signs Vital Sign Reading Time Taken Comments Blood Pressure 116/76 04/25/2021 12:37 PM ASSOCIATE DIRECTOR OF SALES Pulse 72 04/25/2021 12:37 PM ASSOCIATE DIRECTOR OF SALES Temperature 36.4 C (97.5 F) 04/25/2021 12:37 PM ASSOCIATE DIRECTOR OF SALES Respiratory Rate 18 04/25/2021 12:37 PM ASSOCIATE DIRECTOR OF SALES Oxygen Saturation 97% 04/25/2021 12:37 PM ASSOCIATE DIRECTOR OF SALES Inhaled Oxygen Concentration - - Weight 58.8 kg (129 lb 9.6 oz) 04/25/2021 12:37 PM ASSOCIATE DIRECTOR OF SALES Height 150.5 cm (4' 11.25) 04/25/2021 12:37 PM ASSOCIATE DIRECTOR OF SALES Body Mass Index 25.95 04/25/2021 12:37 PM ASSOCIATE DIRECTOR OF SALES Plan of Treatment Not on file Insurance MEDICARE [facility] Care Teams Tire Setter Relationship Specialty Start Date End Date Olegario Sunshine NP [address] [place] [id number] PCP - General Nurse Practitioner 03/03/21
[2024-10-06 12:17] LABS: Alanine Aminotransferase 30 U/L (6-35); Albumin Level 4.9 g/dL (3.5-5.1); Alkaline Phosphatase 37 U/L (38-126); Anion Gap 9 mmol/L (4-12); Aspartate Amino Transferase 29 U/L (14-36); Bilirubin,Total 1.2 mg/dL (0.2-1.3); Blood Urea Nitrogen 21 mg/dL (7-17); Calcium 10.1 mg/dL (8.4-10.2); Carbon Dioxide 29 mmol/L (22-30); Chloride 100 mmol/L (98-107); Estimated Glomerular Filt Rate 57; Glucose 122 mg/dL (65-110); Osmolality Calculated 290 mOsm/kg (285-295); Potassium 4.0 mmol/L (3.4-5.0); Sodium 138 mmol/L (137-145); Total Protein 7.6 g/dL (6.3-8.2)
--- NOTE | 2024-10-06 12:23 | PC.NURSE ---
pt visiting with female in room.
[2024-10-06 12:36] LABS: INR 0.9; Partial Thromboplastin Time 24.5 Sec (23.9-30.70); Prothrombin Time 10.2 Seconds (9.50-12.1)
[2024-10-06 12:51] VITALS: BP 146/69; PULSE 89; RESP 18; TEMP 36.6; O2SAT 95
[2024-10-06 13:07] LABS: NT Pro B Type Natriuretic Pept 232 pg/mL (19.9-100)
[2024-10-06 13:28] LABS: Troponin I < 0.012 ng/mL (0.000-0.034)
[2024-10-06 13:47] VITALS: BP 146/72; PULSE 84; RESP 20; TEMP 36.7; O2SAT 98
== END 2024-10-06 13:47 | disposition home or self-care (01) ==
PROVIDERS: Emergency Provider Emergency Medicine; PCP Family Medicine
DX: R42 Dizziness and giddiness (principal); I48.0 Paroxysmal atrial fibrillation; I10 Essential (primary) hypertension; E78.5 Hyperlipidemia, unspecified
CPT/HCPCS: 36415; 70450; 71046; 80053; 81003; 83880; 84484; 85025; 85610; 85730; 93005; 99284

== ENCOUNTER 2024-10-10 15:29 | Outpatient (CLI) | payer MEDICARE, SELFPAY ==
--- OUTSIDE RECORDS SUMMARY | 2024-10-10 13:00 | XMS_ITS | Encounter Summary ---
Author Organization [facility] Address [address] [place] [address] Care Team Providers Care Bell Ringer Name Role Phone Adolph Gray DO Primary Care Provider [phone] Reason for Visit * Reason Comments Hypertension Follow Up 9 month Encounter Details Date Type Department Care Team (Latest Contact Info) Description 10/10/2024 1:00 PM CDT Office Visit [facility] - [address] [facility] [address] [address] [facility] [address] [place] [address] [phone] History of TIA (transient ischemic attack) (Primary Dx); Essential hypertension; Pure hypercholesterolemia Social History Tobacco Use Types Packs/Day Years Used Date Smoking Tobacco: Never Smokeless Tobacco: Never Alcohol Use Standard Drinks/Week Comments Yes 0 (1 standard drink = 0.6 oz pure alcohol) 1 glass of wine every couple months.per pt. 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 woman with a past medical history significant for hypertension, hyperlipidemia, and prior TIA presenting for follow-up. The patient has not had any recurrence of stroke or strokelike symptoms, but did have an episode of near syncope recently for which she was seen in the emergency department. We had recommended implantable loop recorder placement and further workup for possible occult atrial fibrillation and for evaluation of her near syncopal events and palpitations. She previously had declined. Review of Systems Constitutional: Negative for chills, decreased appetite, diaphoresis, fever, malaise/fatigue and weight gain. HENT: Negative for congestion. Eyes: Negative for blurred vision. Cardiovascular: Negative for chest pain, claudication, cyanosis, dyspnea on exertion, irregular heartbeat, leg swelling, near-syncope, orthopnea, palpitations, paroxysmal nocturnal dyspnea and syncope. Respiratory: Negative for cough, shortness of breath, snoring and wheezing. Endocrine: Negative for polydipsia, polyphagia and polyuria. Skin: Negative for color change, dry skin, flushing and rash. Musculoskeletal: Negative for arthritis, back pain, falls, muscle weakness and myalgias. Gastrointestinal: Negative for abdominal pain, constipation, diarrhea, dysphagia, hematemesis, nausea and vomiting. Neurological: Negative for focal weakness, headaches, light-headedness, loss of balance, numbness, paresthesias and weakness. Psychiatric/Behavioral: Negative for altered mental status. Allergies Allergen Reactions Atorvastatin Hives Sulfa (Sulfonamide Antibiotics) Itching Sulfur Itching Current Outpatient Medications Medication Sig Dispense Refill simvastatin (ZOCOR) 40 mg tablet TAKE ONE TABLET BY MOUTH DAILY 90 Tablet 3 metoprolol tartrate (LOPRESSOR) 25 mg tablet TAKE ONE TABLET BY MOUTH TWICE A DAY 60 Tablet 3 losartan-hydroCHLOROthiazide (HYZAAR) 50-12.5 mg tablet Take 1 Tablet by mouth daily. cholecalciferol, Vitamin D3, 50 mcg (2,000 unit) Tablet Take 2,000 Units by mouth daily. cyanocobalamin 1,000 mcg Tablet Take 1,000 mcg by mouth daily. aspirin (ECOTRIN EC) 81 mg Tablet, Delayed Release (E.C.) Take 81 mg by mouth daily. No current facility-administered medications for this visit. Objective: Physical Exam: Vitals: 10/10/24 1250 BP: 116/73 BP Location: Left arm Patient Position (BP): Sitting BP Cuff Size: Adult Pulse: (!) 54 Weight: 58.9 kg (129 lb 12.8 oz) General appearance: alert, in no distress, no respiratory distress. Neck: supple, symmetrical, trachea midline, no carotid bruit, normal JVP Lungs: clear to auscultation bilaterally, normal respiratory effort Heart: normal rate, regular rhythm, normal S1, S2, no murmurs, rubs, clicks or gallops Extremities: No clubbing cyanosis or edema Skin: Skin color, texture, turgor normal. No rashes or lesions Neurologic: Grossly normal, awake and alert, answers questions appropriately ICD-10-CM ICD-9-CM 1. History of TIA (transient ischemic attack) Z86.73 V12.54 HEPATIC FUNCTION PANEL LIPID PANEL 2. Essential hypertension I10 401.9 3. Pure hypercholesterolemia E78.00 272.0 HEPATIC FUNCTION PANEL LIPID PANEL Assessment/Plan: I had a lengthy conversation with the patient and her daughter today regarding the importance of loop recorder implantation to further evaluate her for possible suspected occult atrial fibrillation if she is found to have atrial fibrillation she will need consideration for therapeutic anticoagulation. She is continue to have episodes of recurrent palpitations and episodes of near syncope. After discussion today, she is agreeable to have this placed. Continue aspirin for now. Pressure is well-controlled on metoprolol and losartan/hydrochlorothiazide. Continue high intensity statin therapy with simvastatin 20 mg nightly. Goal DL of less than 70. The above listed diagnoses and conditions require a long-term patient physician relationship due tothe medical complexity and cognitive effort involved in formulation and execution of the diagnosticand treatment plan. Delfina Nieves MD [facility] Cardiology [facility] * Nicolás Gould ANP - 10/10/2024 12:54 PM CDT Return Office Visit 1:14 PM 10/10/2024 Briana Ferrell 1940 [id number] Primary Care Physician: Adolph Gray DO Chief Complaint Patient presents with Hypertension Follow Up 9 month HPI: Briana Ferrell is a 83 y.o. female followed by Dr Nieves presenting for follow up. Briana has a history of hypertension, hyperlipidemia, and prior TIA Recent hospital visit in [facility] for dizziness - VT head neg and there workup negative. She was DC'd home from ER. Stated possible relate to inner ear issue? Other than her recent trip to ER for dizziness she has been feeling great No complaints Physical Exam: Neck: JVP not elevated Chest: CTA Cardiovascular: RRR Extremities: no edema Abdomen: soft non tender Neuro: awake, alert and oriented Vitals: 10/10/24 1250 BP: 116/73 BP Location: Left arm Patient Position (BP): Sitting BP Cuff Size: Adult Pulse: (!) 54 Weight: 58.9 kg (129 lb 12.8 oz) Wt Readings from Last 3 Encounters: 10/10/24 58.9 kg (129 lb 12.8 oz) 01/17/24 58.3 kg (128 lb 9.6 oz) 01/05/23 58.5 kg (129 lb) BP Readings from Last 3 Encounters: 10/10/24 116/73 01/17/24 118/58 01/05/23 134/68 The ASCVD Risk score (Rebeca DK, et al., 2019) failed to calculate for the following reasons: The 2019 ASCVD risk score is only valid for ages 40 to 79 Encounter Diagnoses Name Primary? History of TIA (transient ischemic attack) Yes Essential hypertension Pure hypercholesterolemia Assessment & Plan HTN - well controlled on current meds. No changes HLD - LDL goal is <70 at a minimum, but ideally we want LDL closer to 50. Continue statin. Overdue for labs. Will print these orders so she can have them done at her local lab Prior TIA - Event monitor with no atrial arrhythmias. She has declined ILR in the past. We have discussed this again today (especially with her recent episode of unexplained dizziness) and she now states she is going to seriously consider this. Porphyrio has not captured any arrhythmias Return in about 1 year (around 10/10/2025). Nicolás Gould, ANP Collaborating physician present in suite and available at time of visit: Dr Marrero Past Medical History: Diagnosis Date HTN (hypertension) Hyperlipidemia Undiagnosed cardiac murmurs PT states she was sold she had one. Past Surgical History: Procedure Laterality Date HX SECTION had 3 Family History Problem Relation Name Age of Onset Heart Surgery Father Social History Socioeconomic History Marital status: Spouse name: Not on file Number of children: Not on file Years of education: Not on file Highest education level: Not on file Occupational History Not on file Tobacco Use Smoking status: Never Smokeless tobacco: Never Vaping Use Vaping status: Never Used Substance and Sexual Activity Alcohol use: Yes Comment: 1 glass of wine every couple months.per pt. Drug use: Never Sexual activity: Not on file Other Topics Concern Not on file Social History Narrative Not on file Social Drivers of Health Food Insecurity: Not on file Transportation Needs: Not on file Feeling Safe: Not on file Housing Stability: Not on file ROS: as per the HPI. The remainder of the review of systems is negative or as noted in the HPI. Allergies Allergen Reactions Atorvastatin Hives Sulfa (Sulfonamide Antibiotics) Itching Sulfur Itching Current Outpatient Medications Medication Sig Dispense Refill simvastatin (ZOCOR) 40 mg tablet TAKE ONE TABLET BY MOUTH DAILY 90 Tablet 3 metoprolol tartrate (LOPRESSOR) 25 mg tablet TAKE ONE TABLET BY MOUTH TWICE A DAY 60 Tablet 3 losartan-hydroCHLOROthiazide (HYZAAR) 50-12.5 mg tablet Take 1 Tablet by mouth daily. cholecalciferol, Vitamin D3, 50 mcg (2,000 unit) Tablet Take 2,000 Units by mouth daily. cyanocobalamin 1,000 mcg Tablet Take 1,000 mcg by mouth daily. aspirin (ECOTRIN EC) 81 mg Tablet, Delayed Release (E.C.) Take 81 mg by mouth daily. No current facility-administered medications for this visit. No results found for: CHOLTOT, HDL, LDLCALC, LDLDIRECT, TRIGLYCERIDE No results found for: ALT, AST, ALKPHOS No results found for: BUN, CREAT, K ECHOCARDIOGRAM: Results for orders placed or performed during the hospital encounter of 10/14/23 ECHO COMPLETE Result Value Ref Range EJECTION FRACTION 60 Narrative [facility] Heart and Vascular Testing Transthoracic Echocardiogram Patient: Briana Ferrell Study ID: [id number] Gender: F : 1940 Age: 82 Race: GRACIE Height 147.3cm Study Date: 10/14/2023 Weight: 58.5kg Access. #: [id number] BP: 125 / 70 *Referring Physician:Delfina Montoya Farhaan *Ordering Physician:* Delfina Nieves *It Consultant:* Devon Sim information management officer: Nurse: Indications: Chest pain. SOB / SANDY. History: PMH: HLD. Risk factors: Hypertension. STUDY CONCLUSIONS: SUMMARY: - Left ventricle: The cavity size was normal. Wall thickness was normal. Global systolic function is normal. For Epic reporting: the left ventricular ejection fraction is 60% . Diastolic function assessment consistent with abnormal left ventricular relaxation (grade 1 diastolic dysfunction). - Aortic valve: The valve leaflets were not well visualized. . The leaflets are mildly calcified. Mild regurgitation. - Mitral valve: There is mild thickening of the anterior leaflet. Mild regurgitation. - Left atrium: The atrium is moderately dilated. - Right ventricle: The cavity size is normal. Systolic function is normal. - Tricuspid valve: Mild regurgitation. - Pulmonary arteries: The peak systolic pressure is 26mm Hg. Cardiac Anatomy: LEFT VENTRICLE: The cavity size was normal. Wall thickness was normal. Global systolic function is normal. For Epic reporting: the left ventricular ejection fraction is 60% . Global longitudinal strain was -12.4% (GLS is abnormal if greater than -16, i.e. -15). Diastolic function assessment consistent with abnormal left ventricular relaxation (grade 1 diastolic dysfunction). AORTIC VALVE: The valve leaflets were not well visualized. . The leaflets are mildly calcified. Mild regurgitation. The mean systolic gradient is 6mm Hg. The peak systolic gradient is 13mm Hg. The LVOT to aortic valve VTI ratio is 0.61. The valve area is 1.9cm^2. The ratio of LVOT to aortic valve peak velocity is 0.55. AORTA: Aortic root: The root is normal-sized. MITRAL VALVE: The annulus is moderately calcified. There is mild thickening of the anterior leaflet. Mild regurgitation. The mean diastolic gradient is 2mm Hg. The peak diastolic gradient is 7mm Hg. LEFT ATRIUM: The atrium is moderately dilated. RIGHT VENTRICLE: The cavity size is normal. Systolic function is normal. PULMONIC VALVE: Structurally normal valve. No significant regurgitation. TRICUSPID VALVE: Structurally normal valve. Mild regurgitation. RIGHT ATRIUM: The atrium was normal in size. SYSTEMIC VEINS: Inferior vena cava: The IVC is normal-sized. PERICARDIUM: There is no pericardial effusion. Measurements Left ventricle Value Ref GLS, 2D -12.4 % --------- IVS, ES, LAX 1.1 cm --------- SARAH, LAX (L) 3.2 cm 3.8 - 5.2 SARAH/bsa, LAX (L) 2.1 cm/m^2 2.3 - 3.1 SARAH, LAX chord (N) 4.7 cm 3.8 - 5.2 ESD, LAX chord (N) 3.2 cm 2.2 - 3.5 SARAH/bsa, LAX chord (N) 3.1 cm/m^2 2.3 - 3.1 ESD/bsa, LAX chord (N) 2.1 cm/m^2 1.3 - 2.1 FS, LAX chord (N) 32 % 27 - 45 IVS, ED (N) 0.8 cm 0.6 - 0.9 IVS, ES 1.1 cm --------- IVS thickening 38 % --------- PW, ED (N) 0.9 cm 0.6 - 0.9 PW, ES 1.1 cm --------- EDV, 2-p (L) 45 ml 46 - 106 ESV, 2-p (N) 15 ml 14 - 42 EF, 2-p (N) 66 % 54 - 74 SV, 2-p 30 ml --------- SV/bsa, 2-p 19.7 ml/m^2 --------- E', med cruzito, TDI (L) 4.0 cm/sec >=7.0 E/e', med cruzito, TDI 22 --------- LVOT Value Ref Diam, S 2.0 cm --------- Area 3.1 cm^2 --------- Peak braeden, S 0.99 m/sec --------- VTI, S 24.0 cm --------- Right ventricle Value Ref SARAH minor ax, A4C base (N) 3.6 cm 2.5 - 4.1 SARAH minor ax, A4C mid (N) 2.5 cm 1.9 - 3.5 SARAH major ax, A4C (N) 6.0 cm 5.9 - 8.3 TAPSE, MM (N) 2.2 cm >=1.7 Pressure, S 28 mm Hg --------- S' lateral (N) 12.2 cm/sec >=9.5 Left atrium Value Ref AP dim, ES (H) 5.0 cm 2.7 - 3.8 AP dim index, ES (H) 3.3 cm/m^2 1.5 - 2.3 SI dim, A4C 5.7 cm --------- Area ES, A4C (N) 20 cm^2 <=20 Area/bsa ES, A4C 13.38 cm^2/m^2 --------- SI dim, A2C 5.1 cm --------- SI dim, shorter 5.1 cm --------- Vol, ES, 1-p A4C (H) 59 ml 22 - 52 Vol/bsa, ES, 1-p A4C (N) 39 ml/m^2 11 - 40 Vol, ES, 1-p A2C (N) 47 ml 22 - 52 Vol/bsa, ES, 1-p A2C (N) 31 ml/m^2 13 - 40 Vol, ES, 2-p 56 ml --------- Vol/bsa, ES, 2-p (H) 37 ml/m^2 16 - 34 LA/Ao root ratio 1.61 --------- Right atrium Value Ref SI dim, ES, A4C (N) 4.6 cm 3.4 - 5.3 SI dim/bsa, ES, A4C (N) 3.1 cm/m^2 1.9 - 3.1 Area, ES, A4C (N) 13 cm^2 10 - 18 Vol, ES, 1-p A4C 30 ml --------- Vol/bsa, ES, 1-p A4C (N) 20 ml/m^2 9 - 33 Aortic valve Value Ref Peak v, S 1.8 m/sec --------- Mean v, S 1.19 m/sec --------- VTI, S 39.4 cm --------- Mean grad, S 6 mm Hg --------- Peak grad, S 13 mm Hg --------- LVOT/AV, VTI ratio 0.61 --------- STEVE, VTI 1.9 cm^2 --------- STEVE/bsa, VTI 1.26 cm^2/m^2 --------- LVOT/AV, Vpeak ratio 0.55 --------- STEVE, Vmax 1.7 cm^2 --------- STEVE/bsa, Vmax 1.14 cm^2/m^2 --------- Mitral valve Value Ref Peak E 0.88 m/sec --------- Peak A 1.12 m/sec --------- PHT 72 ms --------- Mean grad, D 2 mm Hg --------- Peak grad, D 7 mm Hg --------- Peak E/A ratio 0.8 --------- MVA, PHT 3.1 cm^2 --------- MVA/bsa, PHT 2.03 cm^2/m^2 --------- Pulmonic valve Value Ref Peak v, S 0.79 m/sec --------- Peak grad, S 2 mm Hg --------- Tricuspid valve Value Ref TR peak v (N) 2.4 m/sec <=2.8 Peak RV-RA grad, S 23 mm Hg --------- Aortic root Value Ref Root diam, 3.1 cm --------- Ascending aorta Value Ref AAo AP diam, S 3.1 cm --------- AAo AP diam/bsa, S 2.1 cm/m^2 --------- Pulmonary artery Value Ref Pressure, S 26 mm Hg --------- Systemic veins Value Ref Estimated RA pressure 5 mm Hg --------- Legend: (L) and (H) niki values outside specified reference range. (N) chavez values inside specified reference range. Procedure data: MCHOD Comparison was made to the study of 04/21/2021. Study status: Routine. Procedure information: A transthoracic echocardiogram was performed. Scanning was performed from the parasternal, apical, and subcostal acoustic windows. Transthoracic echocardiogram. Complete 2D, complete spectral Doppler, and color Doppler. Birthdate: Patient birthdate: 1940. Age: Patient is 82year(s) old. Sex: gender: female. Height: 147.3cm. 58in. Weight: 58.5kg. 129lb. Body mass index: 27kg/m^2. Body surface area: 1.51m^2. Heart rate: 65bpm. Blood pressure: 125/70 Patient status: Outpatient. Study date: Study date: 10/14/2023. Study time: 08:08 AM. Location: Echo laboratory. Prepared and Electronically Authenticated Arcadio Shin MD [id number] DISCLAIMER: At least part of this note was dictated with the assistance of dictation software and there may occasionally be some mispelled or mistranslated/substituted words. documented in this encounter Miscellaneous Notes * Addendum Note - Delfina Nieves MD - 10/10/2024 3:12 PM CDTAddended by: DELFINA NIEVES on: 10/10/2024 03:12 PM Modules accepted: Level of Service documented in this encounter Plan of Treatment Upcoming Encounters Date Type Department Care Team (Late st Contact Info) Description 11/06/2024 11:00 AM CDT Office Visit [facility] - [address] [place] [address] [place] [address] [place] [address] 10/01/2025 2:30 PM CDT Office Visit [facility] - [address] [address] [place] [address] Nicolás Gould ANP [address] [place] [address] Scheduled Orders Name Type Priority Associated Diagnoses Orde r Schedule HEPATIC FUNCTION PANEL Lab Routine History of TIA (transient ischemic attack) Pure hypercholesterolemia Expected: 11/10/2024 (Approximate), Expires: 10/10/2025 LIPID PANEL Lab Routine History of TIA (transient ischemic attack) Pure hypercholesterolemia Expected: 11/10/2024 (Approximate), Expires: 10/10/2025 documented as of this encounter Visit Diagnoses Diagnosis History of TIA (transient ischemic attack)- Primary Transient ischemic attack (TIA), and cerebral infarction without residual deficits Essential hypertension Unspecified essential hypertension Pure hypercholesterolemia documented in this encounter Care Teams Bell Ringer Relationship Specialty Start Date End Date Adolph Gray DO [address] [place] [address] PCP - General Family Practice 01/05/23 documented as of this encounter
--- OUTSIDE RECORDS SUMMARY | 2024-10-10 15:58 | XMS_ITS | Clinical Summary ---
Author Organization [facility] Address [address] [place] [address] Care Team Providers Care Supervisor Cured Meats Name Role Phone Olegario Sunshine Pushpa LASER BEAM COLOR SCANNER OPERATOR Primary Care Provider [phone] Allergies No known active allergies Medications ondansetron [...] age to complete this topic Insurance MEDICARE [facility] [employer] Care Teams Supervisor Cured Meats Relationship Specialty Start Date End Date Olegario Sunshine FNP [address] [place] [address] PCP - General Nurse Practitioner Family 05/30/21
--- OUTSIDE RECORDS SUMMARY | 2024-10-10 15:58 | XMS_ITS | Encounter Summary ---
Author Organization [facility] Address [address] [place] [address] Care Team Providers Care Waiter Name Role Phone Adolph Gray DO Primary Care Provider [phone] Encounter Details Date Type Department Care Team ([facility] Contact Info) Description 10/09/2024 Abstract [facility] Heart and Vascular Testing [facility] [address] [address] [place] [address] Provider, Abstract NO ADDRESS ON FILE Social History Tobacco Use Types Packs/Day Years [...] on file documented as of this encounter Plan of Treatment Upcoming Encounters Date Type Department Care Team ([facility] Contact Info) Description 11/06/2024 11:00 AM CDT Office Visit [facility] [address] [address] [facility] [address] [place] [address] [place] [address] [place] [address] 10/01/2025 2:30 PM CDT Office Visit [facility] [address] [facility] [facility] [address] [place] [address] Nicolás Gould, QUINT[place] [address] [address] [facility] [address] [place] [address] documented as of this encounter Visit Diagnoses Not on filedocumented in this encounter Care Teams Waiter Relationship Specialty Start Date End Date Adolph Gray DO [address] [place] [phone] PCP - General Family Practice 01/05/23 documented as of this encounter
--- OUTSIDE RECORDS SUMMARY | 2024-10-10 15:58 | XMS_ITS | Encounter Summary ---
Author Organization [facility] Address [address] [place] [address] Care Team Providers Care Emery Grinder Name Role Phone Adolph Gray DO Primary Care Provider [phone] Reason for Visit * Reason Onset Date Comments Needs Loop Recorder 10/10/2024 Encounter Details Date Type Department Care Team (Late st Contact Info) Description 10/10/2024 Telephone [facility] - [address] [place] [address] [facility] [address] [place] [address] [place] [address] [facility] [address] [place] [address] Needs Loop Recorder Social History Tobacco Use Types Packs/Day Years [...] on file documented as of this encounter Miscellaneous Notes * Telephone Encounter - Sherri Trujillo - 10/10/2024 1:50 PM CDT Made an appt with Dr. Mejias for . Patient is aware of time, date and location. * Telephone Encounter - Laberta, Radha R, CPO - 10/10/2024 1:22 PM CDT Please call patient and schedule loop recorder per FA documented in this encounter Plan of Treatment Upcoming Encounters Date Type Department Care Team (Late st Contact Info) Description 11/06/2024 11:00 AM CDT Office Visit [facility] Heart [facility] Vascular - [address] [place] [address] [place] [address] [address] [place] [address] 10/01/2025 2:30 PM CDT Office Visit [facility] Heart [facility]ascular - [address] [place] [address] Nicolás Gould ANP [address] [place] [address] documented as of this encounter Visit Diagnoses Not on filedocumented in this encounter Care Teams Emery Grinder Relationship Specialty Start Date End Date Adolph Gray DO [address] [place] [address] PCP - General Family Practice 01/05/23 documented as of this encounter
--- OUTSIDE RECORDS SUMMARY | 2024-10-10 15:58 | XMS_ITS | Clinical Summary ---
Author Organization [facility] [address] Address [address] [place] [address] Care Team Providers Care Wool Shearer Name Role Phone Olegario Sunshine NP Primary Care Provider [phone] Allergies Active Allergy Reactions Criticality Noted Date Comments Sulfa Itching Low 03/05/2021 Medications lisinopril-hydroCHL OROthiazide (ZESTORETIC) 10-12.5 mg per tablet 1 Active vit D3-vit Q-sxbdzcgbs-dist [id number] ktlr-ycp-vb-mg tablet Take by mouth Active zinc 50 [...] tolerated Assessment & Plan (04/17/2021 8:34 PM UTILITY MANAGER): States fatigue is better. Post has cut [...] explore. Assessment & Plan (03/08/2021 3:17 PM UTILITY MANAGER): Diary of sleep, looking at quality of [...] basis. Assessment & Plan (04/17/2021 8:22 PM UTILITY MANAGER): CT of heas of without contrast. Continue to watch for changes in memory or function. Continiue with Baby ASA. Also will set up for bilateral carotid doppler Assessment & Plan (03/08/2021 3:23 PM UTILITY MANAGER): Lab today. Keep track of events Set [...] months Assessment & Plan (04/17/2021 8:32 PM UTILITY MANAGER): Continue with vitamin D3 as ordered. Will get set up for a bone density at [facility] as available Assessment & Plan (03/08/2021 3:07 PM UTILITY MANAGER): Lab today. Make sure she is eating [...] elevation Assessment & Plan (04/17/2021 8:24 PM UTILITY MANAGER): Hypertension stable at this time Continue medications as ordered Continue to watch diet for increased salt intake or salty foods no added salt at this time. Exercise, at least 3 times per week, for 30 minutes or as tolerated Assessment & Plan (03/08/2021 2:58 PM UTILITY MANAGER): Continue with medications as ordred. Watch diet [...] on. Assessment & Plan (04/17/2021 8:31 PM UTILITY MANAGER): Still having irregular heartbeat, lasting only a few minutes. Talked with patient about options to care noting past lab results were good. Next step would to get a Holter monitor, 2D echocardiogram with color flow, to refer to panel flow machine operator. Will get CT and carotid Doppler done 1st. Unless palpitations become more frequently distress to the patient if there is any chest pain shortness of breath diaphoresis to go straight to the emergency room. Prefer that she goes to [facility], and ask for Dr. Luna or Dr. Watters or Saida.. Assessment & Plan (03/08/2021 3:06 PM UTILITY MANAGER): Get old records for review. Lab today [...] on file Legal Sex Female 5:38 PM UTILITY MANAGER Gender Identity Not on file Sexual Orientation Not on file Obstetrics History Last Filed Vital Signs Vital Sign Reading Time Taken Comments Blood Pressure 116/76 04/25/2021 12:37 PM UTILITY MANAGER Pulse 72 04/25/2021 12:37 PM UTILITY MANAGER Temperature 36.4 C (97.5 F) 04/25/2021 12:37 PM UTILITY MANAGER Respiratory Rate 18 04/25/2021 12:37 PM UTILITY MANAGER Oxygen Saturation 97% 04/25/2021 12:37 PM UTILITY MANAGER Inhaled Oxygen Concentration - - Weight 58.8 kg (129 lb 9.6 oz) 04/25/2021 12:37 PM UTILITY MANAGER Height 150.5 cm (4' 11.25) 04/25/2021 12:37 PM UTILITY MANAGER Body Mass Index 25.95 04/25/2021 12:37 PM UTILITY MANAGER Plan of Treatment Not on file Insurance MEDICARE [facility] Care Teams Wool Shearer Relationship Specialty Start Date End Date Olegario Sunshine NP [address] [place] [address] PCP - General Nurse Practitioner 03/03/21
--- OUTSIDE RECORDS SUMMARY | 2024-10-10 15:59 | XMS_ITS | Clinical Summary ---
Author Organization [facility] [address] [facility] Address [address] [place] [address] Care Team Providers Care Endoscopy Tech Name Role Phone Adolph Gray DO Primary Care Provider [phone] Allergies Active Allergy Reactions Criticality Noted Date Comments Atorvastatin Hives High 01/17/2024 Sulfa (Sulfonamide Antibiotics) Itching Low 02/22 Sulfur Itching Low 03/05/2021 Medications aspirin (ECOTRIN EC) 81 mg Tablet, Delayed Release (E.C.) Take 81 mg by mouth daily. Active cyanocobalamin 1,000 [...] Encounters Date Type Department Care Team Description 10/10/2024 1:00 PM CDT Office Visit [facility] Heart and Vascular - [address] [facility] [address] [facility] [address] [place] [address] History of TIA (transient ischemic attack) (Primary Dx); Essential hypertension; Pure hypercholesterolemia 10/10/2024 Telephone [facility] Heart and Vascular - [address] [facility] [address] [facility] [address] [place] [address] Harsha Nieves MD Needs Loop Recorder 10/09/2024 Abstract [facility] Heart and Vascular Testing [facility] [address] [facility] [address] [place] [address] Provider, Abstract 09/27/2024 External Device Data STL ABSTRACTION Provider, [...] - Oxygen Saturation 98% 01/05/2023 8:59 AM ORDER CONTROL CLERK BLOOD BANK Inhaled Oxygen Concentration - - Weight 58.9 kg (129 lb 12.8 oz) 025 12:50 PM CDT Height 147.3 cm (4' 10) 01/17/2024 1:34 PM ORDER CONTROL CLERK BLOOD BANK Body Mass Index 27.13 01/17/2024 1:34 PM ORDER CONTROL CLERK BLOOD BANK Plan of Treatment Upcoming Encounters Date Type Department Care Team (Late st Contact Info) Description 11/06/2024 11:00 AM CDT Office Visit [facility] Heart and Vascular - [address] [facility] [address] [place] [address] [place] [address] [place] [address] 10/01/2025 2:30 PM CDT Office Visit [facility] Heart and Vascular - [address] [facility] [address] [place] [address] Nicolás Gould ANP [address] [place] [address] Health Maintenance Due Date Last Done Comments DTAP/TDAP/TD VACCINES (1 - Tdap) 1959 Traditional Medicare (ACO) A nnual Wellness Visit 1959 PNEUMOCOCCAL VACCINE 50+ YEA RS (1 [...] Insurance MEDICARE PART A AND B [facility] Address: [address] [facility] [address] [place] [id number] Care Teams Endoscopy Tech Relationship Specialty Start Date End Date Adolph Gray DO [address] [place] [address] PCP - General Family Practice 01/05/23
[2024-10-10 16:18] LABS: Alanine Aminotransferase 28 U/L (6-35); Albumin Level 4.7 g/dL (3.5-5.1); Alkaline Phosphatase 40 U/L (38-126); Aspartate Amino Transferase 28 U/L (14-36); Bilirubin,Total 1.2 mg/dL (0.2-1.3); Cholesterol 140 mg/dL (0-200); HDL Direct 36 mg/dL; Total Protein 7.0 g/dL (6.3-8.2); Triglycerides 228 mg/dL (<150)
== END 2024-10-10 15:30 | disposition home or self-care (01) ==
LOC: CHSLAB 15:34
PROVIDERS: PCP Nurse Practitioner Family
DX: E78.00 Pure hypercholesterolemia, unspecified (principal); Z86.73 Personal history of transient ischemic attack (TIA), and cerebral infarction without residual deficits
CPT/HCPCS: 36415; 80061; 80076

== ENCOUNTER 2024-10-24 08:39 | Outpatient (CLI) | payer MEDICARE, SELFPAY ==
--- OUTSIDE RECORDS SUMMARY | 2024-10-24 08:46 | XMS_ITS | Clinical Summary ---
Author Organization [facility] Address [address] [place] [address] Care Team Providers Care Seasoning Mixer Name Role Phone Olegario Sunshine Pushpa MANAGER FIBER Primary Care Provider [phone] Allergies No known active allergies Medications ondansetron [...] age to complete this topic Insurance MEDICARE [facility] [employer] Care Teams Seasoning Mixer Relationship Specialty Start Date End Date Olegario Sunshine FNP [address] [place] [address] PCP - General Nurse Practitioner Family 05/30/21
--- OUTSIDE RECORDS SUMMARY | 2024-10-24 08:46 | XMS_ITS | Encounter Summary ---
Author Organization [facility] Address [address] [place] [address] Care Team Providers Care Travel Accommodations Rater Name Role Phone Adolph Gray DO Primary Care Provider [phone] Reason for Visit * Reason Onset Date Comments Pt call 10/24/2024 Encounter Details Date Type Department Care Team (Late st Contact Info) Description 10/24/2024 Telephone [facility] Heart and Vascular - [address] [place] [id number] [place] [address] [place] [address] [facility] [address] [place] [address] Pt call Social History Tobacco Use Types Packs/Day Years [...] encounter Miscellaneous Notes * Telephone Encounter - Fauzia Figueroa - 10/24/2024 8:30 AM CDT Pt called needed lab orders faxed to [facility]. Fax [phone]. documented in this encounter Plan of Treatment Upcoming Encounters Date Type Department Care Team (Late st Contact Info) Description 11/06/2024 11:00 AM CDT Office Visit [facility] Heart and Vascular - [address] [facility] [address] [address] [facility] [address] [place] [address] [place] [address] [facility] [address] [place] [address] 10/01/2025 2:30 PM CDT Office Visit [facility] Heart and Vascular - [address] [facility] [address] [facility] [address] [place] [address] Nicolás Gould ANP [address] [facility] [address] [place] [address] documented as of this encounter Visit Diagnoses Not on filedocumented in this encounter Care Teams Travel Accommodations Rater Relationship Specialty Start Date End Date Adolph Gray DO [address] [place] [address] PCP - General Family Practice 01/05/23 documented as of this encounter
--- OUTSIDE RECORDS SUMMARY | 2024-10-24 08:46 | XMS_ITS | Encounter Summary ---
Author Organization [facility] Address [address] [place] [address] Care Team Providers Care Document Management Analyst Name Role Phone Adolph Gray DO Primary Care Provider [phone] Encounter Details Date Type Department Care Team ([facility] Contact Info) Description 10/09/[address] [facility] Heart and Vascular Testing [facility] [address] [facility] [address] [place] [address] Provider, Abstract NO ADDRESS ON [...] Upcoming Encounters Date Type Department Care Team ([facility] Contact Info) Description 11/06/2024 11:00 AM CDT Office Visit [facility] - [address] [facility] [address] [place] [address] [place] [address] [address] [place] [address] 10/01/2025 2:30 PM CDT Office Visit [facility] - [address] [facility] [address] [address] [address] [place] [address] Nicolás Gould, QUINTON [address] [address] [facility] [address] [place] [address] documented as of this encounter Visit Diagnoses Not on filedocumented in this encounter Care Teams Document Management Analyst Relationship Specialty Start Date End Date Adolph Gray DO [address] [place] [id number] PCP - General Family Practice 01/05/23 documented as of this encounter
--- OUTSIDE RECORDS SUMMARY | 2024-10-24 08:46 | XMS_ITS | Clinical Summary ---
Author Organization [facility] [address] [facility] Address [address] [place] [address] Care Team Providers Care Pizza Maker Name Role Phone Adolph Gray DO Primary Care Provider [phone] Allergies Active Allergy Reactions Criticality Noted Date [...] Encounters Date Type Department Care Team Description 10/24/2024 Telephone [facility] Heart and Vascular - [address] [facility] [address] [address] [facility] [address] [place] [address] Harsha Nieves MD Pt call 10/17/2024 Results Follow-Up [facility] Heart and Vascular - [address] [facility] [address] [facility] [address] [place] [address] Harsha Nieves MD MISCELLANEOUS LAB TEST 10/11/2024 External Device Data STL ABSTRACTION Provider, Abstract 10/11/2024 Orders Only [facility] Heart and Vascular - [address] [facility] [address] [facility] [address] [place] [address] Provider, Abstract 10/10/2024 1:00 PM CDT Office Visit [facility] Heart and Vascular - [address] [place] [address] [address] [facility] [address] [place] [address] History of TIA (transient ischemic attack) (Primary Dx); Essential hypertension; Pure hypercholesterolemia 10/10/2024 Telephone [facility] Heart and Vascular - [address] [facility] [address] [facility] [address] [place] [address] Harsha Nieves MD Needs Loop Recorder 10/09/2024 Abstract [facility] Heart and Vascular Testing [facility] [address] [facility] [address] [place] [address] Provider, Abstract 09/27/2024 External Device Data STL [...] - Oxygen Saturation 98% 01/05/2023 8:59 AM CHIEF SECURITY AND SAFETY OFFICER Inhaled Oxygen Concentration - - Weight 58.9 kg (129 lb 12.8 oz) 025 12:50 PM CDT Height 147.3 cm (4' 10) 01/17/2024 1:34 PM CHIEF SECURITY AND SAFETY OFFICER Body Mass Index 27.13 01/17/2024 1:34 PM CHIEF SECURITY AND SAFETY OFFICER Plan of Treatment Upcoming Encounters Date Type Department Care Team (Late st Contact Info) Description 11/06/2024 11:00 AM CDT Office Visit [facility] Heart and Vascular - [address] [facility] [address] [address] [facility] [address] [place] [address] [place] [address] [address] [facility] [address] [place] [address] 10/01/2025 2:30 PM CDT Office Visit [facility] Heart and Vascular - [address] [facility] [address] [address] [facility] [facility] [address] [place] [address] Nicolás Gould ANP [address] [facility] 300 [place] [address] Health Maintenance Due Date Last Done Comments DTAP/TDAP/TD VACCINES (1 - Tdap) 1959 Traditional Medicare (ACO) A nnual Wellness Visit 1959 PNEUMOCOCCAL VACCINE 50+ YEA RS (1 of 1 - PCV) 1988 ZOSTER VACCINE (1 of 2) 1988 RSV VACCINE (60+ or ) (1 - 1-dose 75+ series) 2013 OSTEOPOROSIS SCREENING 07/22/2023 07/21/2018 INFLUENZA VACCINE (#1) 2024 COLORECTAL SCREENING Discontinued 08/12/2018, 06/21/20 19 Colorectal Cancer Screening Discontinued FIT-DNA Q 3 years Discontinued FIT/FOBT Q 1 year Discontinued Flex Sig/CT Colonography Q 5 years Discontinued Procedures Procedure Name Priority Date/Time Associated Diagnosis Comments MISCELLANEOUS LAB TEST Routine 8:35 AM CDT from Last 3 Months Results * MISCELLANEOUS LAB TEST (10/10/2024 8:35 AM CDT) us Abstract Provider CHEMISTRY ORDERABLES Edited Re sult - Final [facility] HE[facility] AND [facility]ASC[facility] [address] [facility] [id number] [address] [address] from Last 3 Months Insurance MEDICARE PART A AND B GENERIC PAYOR Care Teams Pizza Maker Relationship Specialty Start Date End Date Adolph Gray DO [address] [place] [address] PCP - General Family Practice 01/05/23
--- OUTSIDE RECORDS SUMMARY | 2024-10-24 08:46 | XMS_ITS | Clinical Summary ---
Author Organization [facility] [address] Address [address] [place] [address] Care Team Providers Care Vocational Instructor Name Role Phone Olegario Sunshine NP Primary Care Provider [phone] Allergies Active Allergy Reactions Criticality Noted Date Comments Sulfa Itching Low 03/05/2021 Medications lisinopril-hydroCHL OROthiazide (ZESTORETIC) 10-12.5 mg per tablet 1 Active vit D3-vit D-vonoegoeb-jnwf [id number] nuch-cvb-ej-mg tablet Take by mouth Active zinc 50 [...] tolerated Assessment & Plan (04/17/2021 8:34 PM HARNESS RIGGER): States fatigue is better. Post has cut [...] explore. Assessment & Plan (03/08/2021 3:17 PM HARNESS RIGGER): Diary of sleep, looking at quality of [...] basis. Assessment & Plan (04/17/2021 8:22 PM HARNESS RIGGER): CT of heas of without contrast. Continue to watch for changes in memory or function. Continiue with Baby ASA. Also will set up for bilateral carotid doppler Assessment & Plan (03/08/2021 3:23 PM HARNESS RIGGER): Lab today. Keep track of events Set [...] months Assessment & Plan (04/17/2021 8:32 PM HARNESS RIGGER): Continue with vitamin D3 as ordered. Will get set up for a bone density at [facility] as available Assessment & Plan (03/08/2021 3:07 PM HARNESS RIGGER): Lab today. Make sure she is eating [...] elevation Assessment & Plan (04/17/2021 8:24 PM HARNESS RIGGER): Hypertension stable at this time Continue medications as ordered Continue to watch diet for increased salt intake or salty foods no added salt at this time. Exercise, at least 3 times per week, for 30 minutes or as tolerated Assessment & Plan (03/08/2021 2:58 PM HARNESS RIGGER): Continue with medications as ordred. Watch diet [...] on. Assessment & Plan (04/17/2021 8:31 PM HARNESS RIGGER): Still having irregular heartbeat, lasting only a few minutes. Talked with patient about options to care noting past lab results were good. Next step would to get a Holter monitor, 2D echocardiogram with color flow, to refer to nurses' aide. Will get CT and carotid Doppler done 1st. Unless palpitations become more frequently distress to the patient if there is any chest pain shortness of breath diaphoresis to go straight to the emergency room. Prefer that she goes to [facility], and ask for Dr. Luna or Dr. Watters or Saida.. Assessment & Plan (03/08/2021 3:06 PM HARNESS RIGGER): Get old records for review. Lab today [...] on file Legal Sex Female 5:38 PM HARNESS RIGGER Gender Identity Not on file Sexual Orientation Not on file Obstetrics History Last Filed Vital Signs Vital Sign Reading Time Taken Comments Blood Pressure 116/76 04/25/2021 12:37 PM HARNESS RIGGER Pulse 72 04/25/2021 12:37 PM HARNESS RIGGER Temperature 36.4 C (97.5 F) 04/25/2021 12:37 PM HARNESS RIGGER Respiratory Rate 18 04/25/2021 12:37 PM HARNESS RIGGER Oxygen Saturation 97% 04/25/2021 12:37 PM HARNESS RIGGER Inhaled Oxygen Concentration - - Weight 58.8 kg (129 lb 9.6 oz) 04/25/2021 12:37 PM HARNESS RIGGER Height 150.5 cm (4' 11.25) 04/25/2021 12:37 PM HARNESS RIGGER Body Mass Index 25.95 04/25/2021 12:37 PM HARNESS RIGGER Plan of Treatment Not on file Insurance MEDICARE [facility] Care Teams Vocational Instructor Relationship Specialty Start Date End Date Olegario Sunshine NP [address] [place] [address] PCP - General Nurse Practitioner 03/03/21
[2024-10-24 09:40] LABS: Alanine Aminotransferase 30 U/L (6-35); Albumin Level 4.7 g/dL (3.5-5.1); Alkaline Phosphatase 39 U/L (38-126); Aspartate Amino Transferase 27 U/L (14-36); Bilirubin,Total 1.0 mg/dL (0.2-1.3); Cholesterol 142 mg/dL (0-200); HDL Direct 37 mg/dL; Total Protein 6.9 g/dL (6.3-8.2); Triglycerides 246 mg/dL (<150)
== END 2024-10-24 08:40 | disposition home or self-care (01) ==
LOC: CHSLAB 08:42
PROVIDERS: PCP Nurse Practitioner Family
DX: E78.00 Pure hypercholesterolemia, unspecified (principal); I10 Essential (primary) hypertension; Z86.73 Personal history of transient ischemic attack (TIA), and cerebral infarction without residual deficits
CPT/HCPCS: 36415; 80061; 80076

== ENCOUNTER 2024-12-08 22:06 | Emergency (ER) | payer MEDICARE, SELFPAY ==
--- NOTE | ~2024-12-08 | XR_ITS ---
XR foot RT min 3V INDICATION: fall this afternoon. PAIN DORSAL SURFACE RIGHT FOOT. . COMPARISON: None. FINDINGS: Frontal, lateral and oblique views of the right foot were obtained. There is no acute fracture or dislocation. IMPRESSION: Radiographic examination of the right foot demonstrates no acute fracture or dislocation. Reviewed, dictated and finalized at location S. IMPRESSION: Radiographic examination of the right foot demonstrates no acute fracture or di slocation.
[2024-12-08 22:07] VITALS: BP 171/69; PULSE 82; RESP 15; TEMP 36.6; O2SAT 98
--- OUTSIDE RECORDS SUMMARY | 2024-12-08 22:09 | XMS_ITS | Clinical Summary ---
Author Organization [facility] [address] [facility] Address [address] [place] [address] Care Team Providers Care Dials Supervisor Name Role Phone Adolph Gray DO Primary Care Provider [phone] Allergies Active Allergy Reactions Criticality Noted Date [...] Take 2,000 Units by mouth daily. Active simvastatin (ZOCOR) 40 mg tablet TAKE ONE TABLET BY MOUTH DAILY 90 Tablet 3 07/05/2024 Active metoprolol tartrate (LOPRESSOR) 25 mg tablet TAKE ONE TABLET BY MOUTH TWICE A DAY 60 Tablet 3 11/03/2024 Active Active Problems Problem Noted Date Diagnosed Date Essential hypertension 01/05/2023 Pure hypercholesterolemia 01/05/2023 History of TIA (transient ischemic attack) 01/05 Encounters Date Type Department Care Team Description 11/09/2024 5:35 PM CDT - 11/09/2024 6:00 PM CDT Surgery [facility] [employer] [address] [place] [address] Dash Mejias MD EP Loop recorder insertion 11/09/2024 12:39 PM CDT - 11/09/2024 2:00 PM CDT Hospital Encounter [facility] [address] [place] [address] Dash Mejias MD TIA (transient ischemic attack) Discharge Disposition: Home or Self Care 11/03/2024 Prep for Surgery [facility] Heart and [facility] - [address] [place] [address] Dash Mejias MD 11/03/2024 Telephone [facility] - [address] [place] [address] Dash Mejias MD Schedule ILR 11/03/2024 Refill [facility] - [address] [place] [address] Harsha Nieves MD 10/27/2024 Results Follow-Up [facility] - [address] [place] [address] Nicolás Gould ANP LIPID PANEL 10/27/2024 Orders Only [facility] - [address] [place] [address] Provider, Abstract 10/24/2024 External Device Data STL ABSTRACTION Provider, Abstract 10/24/2024 Telephone [facility] - [address] [place] [address] Harsha Nieves MD Pt call 10/17/2024 Results Follow-Up [facility] - [address] [address] [place] [address] Harsha Nieves MD MISCELLANEOUS LAB TEST 10/11/2024 External Device Data STL ABSTRACTION Provider, Abstract 10/11/2024 Orders Only [facility] - [address] [facility] [address] [address] [facility] [address] [place] [address] Provider, Abstract 10/10/2024 1:00 PM CDT Office Visit [facility] - [address] [facility] 300 [address] [facility] [address] [place] [address] History of TIA (transient ischemic attack) (Primary Dx); Essential hypertension; Pure hypercholesterolemia 10/10/2024 Telephone [facility] - [address] [facility] 300 [address] [facility] [address] [place] [address] Harsha Nieves MD Needs Loop Recorder 10/09/2024 Abstract [facility] Heart [facility] V[facility] Testing [facility] [address] [facility] [address] [place] [address] Provider, Abstract 09/27/2024 External Device Data STL [...] Sign Reading Time Taken Comments Blood Pressure 114/63 11/09/2024 2:00 PM CDT Pulse 66 11/09/2024 2:00 PM CDT Temperature 36.9 C (98.4 F) 11/09/2024 12:57 PM CDT Respiratory Rate 16 11/09/2024 2:00 PM CDT Oxygen Saturation 98% 11/09/2024 2:00 PM CDT Inhaled Oxygen Concentration - - Weight 58.1 kg (128 lb) 11/09/2024 12:57 PM CDT Height 147.3 cm (4' 10) 11/09/2024 12:57 PM CDT Body Mass Index 26.75 11/09/2024 12:57 PM CDT Plan of Treatment Upcoming Encounters Date Type Department Care Team (Late st Contact Info) Description 12/12/2024 7:45 AM CDT Procedure visit [facility] Electrophysiology - [address] [facility] [address] [address] [facility] [address] [place] [address] 10/01/2025 2:30 PM CDT Office Visit [facility] - [address] [facility] [address] [facility] [address] [place] [address] Nicolás Gould ANP [address] [facility] [address] [place] [address] Health Maintenance Due Date Last [...] Flex Sig/CT Colonography Q 5 years Discontinued Medical Devices Implanted Type Area Highway Patrol Pilot Device Identifier Shelf Expiration Date Model / Serial / Lot Monitor Cardiac Linq Ii Icm Implantable Lnq22 - [id number] Implanted:Qty : 1 on 11/09/2024 by Dash Mejias MD at [facility] Cardiovascular Device Left: Chest [employer]- CARD RHYTHM MGMT [id number] 02/12/2026 [id number] / [id number] / Procedures Procedure Name Priority Date/Time Associated Diagnosis Comments EP LOOP RECORDER INSERTION Routine 11/09/2024 1:36 PM CDT TIA (transient ischemic attack) LIPID PANEL Routine 10/24/2024 9:43 AM CDT MISCELLANEOUS LAB TEST Routine 8:35 AM CDT from Last 3 Months Results * EP LOOP RECORDER INSERTION (11/09/2024 1:36 PM CDT) Narrative Dash Mejias MD - 11/09/2024 2:25 PM CDT Date of Procedure: 11/09/2024 Procedure performed: Insertion of an Implantable loop recorder. Indication: Cryptogenic stroke (CVA) / assess for occult atrial fibrillation , syncope Procedure: The nature of the procedure was explained to the patient. Risks of complications were explained in detail, including but not limited to bleeding, infection, pain, adverse reaction to medications, and even possible . The patient understood this and agreed to proceed with the planned procedure. After informed consent was obtained, the patient was brought to the procedure room in a postprandial fasting state. The left part of the chest was prepped and draped in the standard fashion. 2% lidocaine was used to locally infiltrate the skin overlying the left 4th intercostal space in the parasternal area. A small puncture was made in the skin using the provided blade and an ILR was inserted under the skin. The skin and subcutaneous tissue was closed using a single 3-0 Vicryl suture. Surgical glue was applied. The patient tolerated the procedure well and was in stable condition. Complications: None Estimated blood loss: <5 cc Impression: Successful implantation of an implantable Loop Recorder. Implanted materials: ILR: Medtronic LINQ II, model # LNQ22, serial # [id number] ILR settings: Tachy: 146 bpm for 16 beats Hugh: 30 bpm for 8 beats Pauses for 5 seconds AF detections ON. Post Procedure: 1. Routine pain medications. 2. Routine ILR teaching will be performed. 3. Follow up appointments will be made. Dash Mejias MD us Dash Mejias MD CUP EP ORDERABLES Final Result * LIPID PANEL (10/24/2024 9:43 AM CDT) Blood us Abstract Provider CHEMISTRY ORDERABLES Edited Re sult - Final [facility] [address] OP[address] KOHLI# [id number] [address] [place] [id number] * MISCELLANEOUS LAB TEST (10/10/2024 8:35 AM CDT) us Abstract Provider CHEMISTRY ORDERABLES Edited Re sult Final [facility] [address] OPAL KOHLI# [id number] [address] [place] [address] from Last 3 Months Insurance MEDICARE PART A AND B GENERIC PAYOR Care Teams Dials Supervisor Relationship Specialty Start Date End Date Adolph Gray DO [address] [place] [address] PCP - General Family Practice 01/05/23
--- OUTSIDE RECORDS SUMMARY | 2024-12-08 22:09 | XMS_ITS | Clinical Summary ---
Author Organization [facility] [address] Address [address] [place] [address] Care Team Providers Care Demand Equipment Repairer Name Role Phone Olegario Sunshine NP Primary Care Provider [phone] Allergies Active Allergy Reactions Criticality Noted Date Comments Sulfa Itching Low 03/05/2021 Medications lisinopril-hydroCHL OROthiazide (ZESTORETIC) 10-12.5 mg per tablet 1 Active vit D3-vit G-chjoqdybj-byfg [phone] vemu-oav-vr-mg tablet Take by mouth Active zinc 50 [...] tolerated Assessment & Plan (04/17/2021 8:34 PM DIRECTOR OF INSTRUCTIONAL TECHNOLOGY): States fatigue is better. Post has cut [...] explore. Assessment & Plan (03/08/2021 3:17 PM DIRECTOR OF INSTRUCTIONAL TECHNOLOGY): Diary of sleep, looking at quality of [...] basis. Assessment & Plan (04/17/2021 8:22 PM DIRECTOR OF INSTRUCTIONAL TECHNOLOGY): CT of heas of without contrast. Continue to watch for changes in memory or function. Continiue with Baby ASA. Also will set up for bilateral carotid doppler Assessment & Plan (03/08/2021 3:23 PM DIRECTOR OF INSTRUCTIONAL TECHNOLOGY): Lab today. Keep track of events Set [...] months Assessment & Plan (04/17/2021 8:32 PM DIRECTOR OF INSTRUCTIONAL TECHNOLOGY): Continue with vitamin D3 as ordered. Will get set up for a bone density at [facility] as available Assessment & Plan (03/08/2021 3:07 PM DIRECTOR OF INSTRUCTIONAL TECHNOLOGY): Lab today. Make sure she is eating [...] elevation Assessment & Plan (04/17/2021 8:24 PM DIRECTOR OF INSTRUCTIONAL TECHNOLOGY): Hypertension stable at this time Continue medications as ordered Continue to watch diet for increased salt intake or salty foods no added salt at this time. Exercise, at least 3 times per week, for 30 minutes or as tolerated Assessment & Plan (03/08/2021 2:58 PM DIRECTOR OF INSTRUCTIONAL TECHNOLOGY): Continue with medications as ordred. Watch diet [...] on. Assessment & Plan (04/17/2021 8:31 PM DIRECTOR OF INSTRUCTIONAL TECHNOLOGY): Still having irregular heartbeat, lasting only a few minutes. Talked with patient about options to care noting past lab results were good. Next step would to get a Holter monitor, 2D echocardiogram with color flow, to refer to radio presenter. Will get CT and carotid Doppler done 1st. Unless palpitations become more frequently distress to the patient if there is any chest pain shortness of breath diaphoresis to go straight to the emergency room. Prefer that she goes to [facility], and ask for Dr. Luna or Dr. Watters or Saida.. Assessment & Plan (03/08/2021 3:06 PM DIRECTOR OF INSTRUCTIONAL TECHNOLOGY): Get old records for review. Lab today [...] on file Legal Sex Female 5:38 PM DIRECTOR OF INSTRUCTIONAL TECHNOLOGY Gender Identity Not on file Sexual Orientation Not on file Obstetrics History Last Filed Vital Signs Vital Sign Reading Time Taken Comments Blood Pressure 116/76 04/25/2021 12:37 PM DIRECTOR OF INSTRUCTIONAL TECHNOLOGY Pulse 72 04/25/2021 12:37 PM DIRECTOR OF INSTRUCTIONAL TECHNOLOGY Temperature 36.4 C (97.5 F) 04/25/2021 12:37 PM DIRECTOR OF INSTRUCTIONAL TECHNOLOGY Respiratory Rate 18 04/25/2021 12:37 PM DIRECTOR OF INSTRUCTIONAL TECHNOLOGY Oxygen Saturation 97% 04/25/2021 12:37 PM DIRECTOR OF INSTRUCTIONAL TECHNOLOGY Inhaled Oxygen Concentration - - Weight 58.8 kg (129 lb 9.6 oz) 04/25/2021 12:37 PM DIRECTOR OF INSTRUCTIONAL TECHNOLOGY Height 150.5 cm (4' 11.25) 04/25/2021 12:37 PM DIRECTOR OF INSTRUCTIONAL TECHNOLOGY Body Mass Index 25.95 04/25/2021 12:37 PM DIRECTOR OF INSTRUCTIONAL TECHNOLOGY Plan of Treatment Not on file Insurance MEDICARE [facility] Care Teams Demand Equipment Repairer Relationship Specialty Start Date End Date Olegario Sunshine NP [address] [place] [id number] PCP - General Nurse Practitioner 03/03/21
--- NOTE | 2024-12-08 22:15 | ED.GENADULT ---
HPI - General Adult General Chief complaint: Extremity Injury, Lower Stated complaint: R Foot Injury Time Seen by Provider: 12/08/24 22:10 Source: patient Limitations: no limitations History of Present Illness HPI narrative: The patient is an 83-year-old woman who takes aspirin, with comorbidities of hypertension hyperlipidemia and aortic stenosis. Last tetanus likely within the last 10 years. This afternoon at 5:00 p.m., while walking at [employer], she tripped and fell, resulting in pain on the upper aspect of her proximal foot but not in the ankle. She was ambulatory and was able to drive back home. Subsequently this evening, the patient developed more pain in the same area. No pain in the ankle or knee or elsewhere in the lower extremities. She does have superficial scrapes on her left knee. No neck or back pain. No loss of consciousness. No other complaints. Related Data Home Medications ?Medication ?Instructions ?Recorded ?Confirmed ?Last Taken ?Type aspirin 81 mg tablet,delayed 81 mg PO DAILY 06/20/19 08/03/24 Unknown History release (Adult Aspirin Regimen) simvastatin 40 mg tablet 40 mg PO DAILY 08/04/22 08/03/24 Unknown History cholecalciferol (vitamin D3) 50 50 mcg PO DAILY 08/18/22 08/03/24 Unknown History mcg (2,000 unit) capsule mecobalamin (vitamin B12) 1,000 1,000 mcg PO DAILY 08/18/22 08/03/24 Unknown History mcg chewable tablet Allergies Allergy/AdvReac Type Severity Reaction Status Date / Time Sulfonamides Allergy Intermediate Itching Uncoded 12/08/24 22:10 atorvastatin AdvReac Mild Itching Uncoded 10/06/24 11:35 Review of Systems Review of Systems: All systems reviewed & are unremarkable except as noted in HPI and below Constitutional: Constitutional: Denies chills, Denies excessive sweating, Denies fatigue, Denies fever(s), Denies headache(s) and Denies weakness Eyes: Eyes: Denies change in vision and Denies photophobia ENT: Denies dysphagia, Denies dizziness, Denies headache(s), Denies lip swelling, Denies nasal congestion, Denies sore throat and Denies tongue swelling Cardiovascular: Cardiovascular: Denies chest pain, Denies syncope, Denies rapid heart rate and Denies dyspnea Respiratory: Respiratory: Denies cough, Denies dyspnea and Denies wheezing Gastrointestinal: Gastrointestinal: Denies abdominal pain, Denies constipation, Denies dysphagia, Denies diarrhea, Denies nausea and Denies vomiting Genitourinary: Genitourinary: Denies hematuria, Denies urinary frequency, Denies dysuria and Denies urinary urgency Musculoskeletal: Musculoskeletal: Denies back pain, Denies myalgias, Denies arthralgias, Denies joint swelling, Denies muscle cramps and Denies numbness Comments: Does have pain in the right foot superficial aspect proximally. Integumentary/Breasts: Skin/Breast: Denies pruritus, Denies erythema and Denies rash Comments: Superficial abrasions, left knee. Neurologic: Denies confusion, Denies dizziness, Denies syncope, Denies headache(s), Denies focal weakness, Denies numbness and Denies weakness Psychiatric: Psychiatric: Denies anxiety and Denies confusion Endocrine: Endocrine: Denies excessive sweating and Denies fatigue Hematologic/Lymphatic: Hematologic/Lymphatic: Denies easy bleeding and Denies easy bruising Allergic/Immunologic: Allergic/Immunologic: Denies lip swelling, Denies tongue swelling and Denies wheezing PMFSH Past Medical History Medical History Screening for diabetes mellitus HTN (hypertension) Hyperlipidemia Surgical History Surgical History History of lumpectomy x's 3 History of section, classical x3 Family History Family History Mother Family history unremarkable Father Heart disease Social History Social History Smoking status: Never smoker Alcohol intake: never Substance use type: does not use Lack of Transportation: No Lack of Food: Never True Current Housing: I Have Housing Concerned About Future Housing: No Difficulty Paying Gas/Electric Bills: No Difficulty Paying for Meds: No Currently Unemployed: No Education: High School Diploma/GED Difficulty w/ Childcare or Family Care: No Living arrangements: alone Occupation/Education: occupation Additional occupation/education comments: [employer] Gender identity (if verbalized by the patient): Female Sexual Orientation (if Verbalized by the Patient): Straight or Heterosexual Exam Const: General: healthy appearing, no acute distress, alert and well nourished Nutritional Appearance: well nourished Orientation/consciousness: patient oriented x3 Limitations: no limitations HENMT: Head: normal to inspection Ears: external ears normal Face/Nose/Sinus: normal facial exam Face and sinus: normal facial exam Mouth: Yes moist mucous membranes Throat: posterior oropharynx normal Eyes: Conjunctivae: conjunctivae normal Pupils: Equal, round and reactive pupils present EOM: EOMs intact bilaterally Neck: Neck: normal visual inspection and no meningeal signs Other: no cervical thoracic or lumbar bony spinal tenderness. Chest: Chest palpation & inspection: normal inspection of the chest and no tenderness Resp: Effort & Inspection: normal respiratory effort and not labored Auscultation: clear to auscultation bilaterally, no crackles, no rhonchi and no wheezes Cardio: Rate: regular rate Rhythm: regular rhythm Heart sounds: no murmurs GI: Inspection: non-distended GI Palp: Yes Soft to palpation, No Tenderness to palpation present (GI), No Guarding due to palpation present (GI) and No Rebound tenderness present : General: Yes no CVA tenderness Back/Spine/Pelvis: Back: no CVA tenderness Cervical Spine: No Cervical spine tenderness Thoracic/Lumbar Spine: No thoracic spinal tenderness Skin: General skin exam: normal color Rashes: no rashes Wounds: wounds noted ( Superficial abrasions at the left knee. No wounds that require repair) Neuro: General: patient oriented x3, moves all extremities, no meningeal signs, no focal motor deficits and CN's II-XI intact bilaterally Cranial nerves: Yes Equal, round and reactive pupils present Speech: normal speech Motor exam (neuro): 5/5 motor strength present throughout Sensory Exam: normal sensation Extrem: General: normal to inspection and no clubbing, cyanosis or edema Other: Mild tenderness at the upper proximal superficial aspect of the right foot with mild contusion noted. Psych: Mental Status: mental status grossly normal Affect: normal affect Course Course Emergency Course: 83-year-old woman who tripped this afternoon, 5 hours ago, at 5:00 p.m., while walking. Initially ambulatory and drove herself home. Now with pain on the superficial aspect of the proximal foot with mild contusion noted on examination. Also with left knee abrasions. X-ray of the right foot is unremarkable for any acute osseous injury. Tylenol and ibuprofen advised for pain or discomfort. Weightbearing as tolerated. Discharge home. All questions answered. Vital Signs Vital signs: Vital Signs Temperature 36.6 C 12/08/24 22:07 Pulse Rate 82 12/08/24 22:07 Respiratory Rate 15 12/08/24 22:07 Blood Pressure 171/69 H 12/08/24 22:07 Pulse Oximetry 98 12/08/24 22:07 Oxygen Delivery Room Air 12/08/24 22:07 Temperature 36.6 C 12/08/24 22:07 Pulse Rate 82 12/08/24 22:07 Respiratory Rate 15 12/08/24 22:07 Blood Pressure 171/69 H 12/08/24 22:07 Pulse Oximetry 98 12/08/24 22:07 Oxygen Delivery Room Air 12/08/24 22:07 Medical Decision Making Vital Signs Vital Signs: Vital Signs Temperature 36.6 C 12/08/24 22:07 Pulse Rate 82 12/08/24 22:07 Respiratory Rate 15 12/08/24 22:07 Blood Pressure 171/69 H 12/08/24 22:07 Pulse Oximetry 98 12/08/24 22:07 Oxygen Delivery Room Air 12/08/24 22:07 Temperature 36.6 C 12/08/24 22:07 Pulse Rate 82 12/08/24 22:07 Respiratory Rate 15 12/08/24 22:07 Blood Pressure 171/69 H 12/08/24 22:07 Pulse Oximetry 98 12/08/24 22:07 Oxygen Delivery Room Air 12/08/24 22:07 Imaging Data My impression: X-ray of the right foot: No acute osseous injury. Interpretation by ER physician. Discharge Plan Discharge Clinical Impression: Contusion of foot, right, Abrasion of knee, left Patient Disposition: Home Condition: Stable Instructions: Contusion in Adults (ED), Abrasion (ED) Additional Instructions: You have a contusion, bruise, of the right foot. X-rays of the right foot did not reveal any broken bones You also have superficial abrasions at the left knee. Follow-up with your primary care provider in the next 1-2 weeks for re-evaluation as needed Return if worse Weight-bearing as tolerated. Tylenol and or ibuprofen as needed for pain or discomfort. Patient Language: Indonesian Prescriptions: No Action metoprolol tartrate 25 mg tablet 25 mg PO BID Qty: 14 0RF simvastatin 40 mg tablet 40 mg PO DAILY cholecalciferol (vitamin D3) 50 mcg (2,000 unit) capsule 50 mcg PO DAILY mecobalamin (vitamin B12) 1,000 mcg tablet,chewable 1,000 mcg PO DAILY aspirin [Adult Aspirin Regimen] 81 mg tablet,delayed release (DR/EC) 81 mg PO DAILY losartan-hydrochlorothiazide 50-12.5 mg tablet See Rx Instructions .ROUTE .COMPLEX Qty: 90 0RF Dose Instruction: TAKE ONE TABLET BY MOUTH DAILY Rx Instructions: TAKE ONE TABLET BY MOUTH DAILY Follow-up/Referrals: Kelle Delaney, DIRECTOR OF ASSESSING [Primary Care Provider, Family Practice] - 2 Weeks Referral Note: Contusion of the right foot, abrasions of the left knee, after a fall. Clinical Impression: Contusion of foot, right; Abrasion of knee, left Time of Disposition: 22:29
--- OUTSIDE RECORDS SUMMARY | 2024-12-08 22:30 | XMS_ITS | Clinical Summary ---
Author Organization [facility] [address] [facility] Address [address] [place] [address] Care Team Providers Care Crusher Dry Ground Mica Name Role Phone Adolph Gray DO Primary Care Provider [phone] Allergies Active Allergy Reactions Criticality Noted Date [...] CDT - 11/09/2024 6:00 PM CDT Surgery [facility] Cardiac Cash Room Clerk [address] [place] [address] Dash Mejias MD EP Loop recorder insertion 11/09/2024 12:39 PM CDT - 11/09/2024 2:00 PM CDT Hospital Encounter [facility] Cardiac Cash Room Clerk [address] [place] [address] Dash Mejias MD TIA (transient ischemic attack) Discharge Disposition: Home or Self Care 11/03/2024 Prep for Surgery [facility] - [address] [place] [address] Dash Mejias MD 11/03/2024 Telephone [facility] - [address] [place] [address] Dash Mejias MD Schedule ILR 11/03/2024 Refill [facility] - [address] [place] [address] Harsha Nieves MD 10/27/2024 Results Follow-Up [facility] - [address] [place] [address] Nicolás Gould ANP LIPID PANEL 10/27/2024 Orders Only [facility] - [address] [place] [address] Provider, Abstract 10/24/2024 External Device Data STL ABSTRACTION Provider, Abstract 10/24/2024 Telephone [facility] - [address] [place] [address] Harsha Nieves MD Pt call 10/17/2024 Results Follow-Up [facility] - [address] [place] [address] Harsha Nieves MD MISCELLANEOUS LAB TEST 10/11/2024 External Device Data STL ABSTRACTION Provider, Abstract 10/11/2024 Orders Only [facility] - [address] [facility] [address] [address] [facility] [address] [place] [address] Provider, Abstract 10/10/2024 1:00 PM CDT Office Visit [facility] - [address] [facility] [address] [address] [facility] [address] [place] [address] History of TIA (transient ischemic attack) (Primary Dx); Essential hypertension; Pure hypercholesterolemia 10/10/2024 Telephone [facility] - [address] [facility] 300 [address] [facility] [address] [place] [address] Harsha Nieves MD Needs Loop Recorder 10/09/2024 [facility] [address] [facility] [address] [place] [address] Provider, Abstract 09/27/2024 External Device Data STL [...] Description 12/12/2024 7:45 AM CDT Procedure visit [facility] Electrophysiology - [address] [facility] [address] [address] [facility] [address] [place] [address] 10/01/2025 2:30 PM CDT Office Visit [facility] - [address] [facility] 300 [address] [facility] [address] [place] [address] Nicolás Gould ANP [address] [facility] [address] [place] [address] Health Maintenance Due Date Last [...] years Discontinued Medical Devices Implanted Type Area News Writer Device Identifier Shelf Expiration Date Model / Serial / Lot Monitor Cardiac Linq Ii Icm Implantable Lnq22 - [id number] Implanted:Qty : 1 on 11/09/2024 by Dash Mejias MD at [facility] Cardiovascular Device Left: Chest [employer]- CARD RHYTHM MGMT [id number] 02/12/2026 [id number] / [id number] / Procedures Procedure Name Priority Date/Time [...] LINQ II, model # [id number], serial # [id number] ILR settings: Tachy: 146 bpm for 16 [...] CHEMISTRY ORDERABLES Edited Re sult - Final [facility] [address] [address]# [id number] [address] [place] [id number] * MISCELLANEOUS LAB TEST (10/10/2024 8:35 AM CDT) us Abstract Provider CHEMISTRY ORDERABLES Edited Re sult Final [facility] [address] OP[address] KOHLI# [id number] [address] [place] [id number] from Last 3 Months Insurance MEDICARE PART A AND B GENERIC PAYOR Care Teams Crusher [employer] Ground Mica Relationship Specialty Start Date End Date Adolph Gary DO [address] [place] [address] PCP - General Family Practice 01/05/23
--- OUTSIDE RECORDS SUMMARY | 2024-12-08 22:30 | XMS_ITS | Clinical Summary ---
Author Organization [facility] Address [address] [place] [address] Care Team Providers Care Load Dispatcher Local Name Role Phone Olegario Sunshine Pushpa BANK WORKER Primary Care Provider [phone] Allergies No known active allergies Medications ondansetron [...] 75+ series) 2013 COVID-19 Vaccine (3 - 2024-2 6 season) 2024 05/03/2020, 04/12/2020 Influenza Adult (#1) 2024 01/22/2021 Hepatitis A Vaccines Aged Out No long er eligible based on patient's age to complete this topic Meningococcal B Vaccine Aged Out No l onger eligible based on patient's age to complete this topic Meningococcal Vaccine Aged Out No edwige nena eligible based on patient's age to complete this topic RSV Immunizations Under 20 Months Aged Out No longer eligible b ased on patient's age to complete this topic Insurance MEDICARE [employer] Care Teams Load Dispatcher Local Relationship Specialty Start Date End Date Olegario Sunshine FNP [address] [place] [address] PCP - General Nurse Practitioner Family 05/30/21
--- OUTSIDE RECORDS SUMMARY | 2024-12-08 22:30 | XMS_ITS | Clinical Summary ---
Author Organization [facility] [address] Address [address] [place] [address] Care Team Providers Care Continuous Drier Operator Name Role Phone Olegario Sunshine NP Primary Care Provider [phone] Allergies Active Allergy Reactions Criticality Noted Date Comments Sulfa Itching Low 03/05/2021 Medications lisinopril-hydroCHL OROthiazide (ZESTORETIC) 10-12.5 mg per tablet 1 Active vit D3-vit P-mpcwyyzfv-irws [phone] wqih-cfs-qv-mg tablet Take by mouth Active zinc 50 [...] tolerated Assessment & Plan (04/17/2021 8:34 PM SUPERVISOR PHOSPHORUS PROCESSING): States fatigue is better. Post has cut [...] explore. Assessment & Plan (03/08/2021 3:17 PM SUPERVISOR PHOSPHORUS PROCESSING): Diary of sleep, looking at quality of [...] basis. Assessment & Plan (04/17/2021 8:22 PM SUPERVISOR PHOSPHORUS PROCESSING): CT of heas of without contrast. Continue to watch for changes in memory or function. Continiue with Baby ASA. Also will set up for bilateral carotid doppler Assessment & Plan (03/08/2021 3:23 PM SUPERVISOR PHOSPHORUS PROCESSING): Lab today. Keep track of events Set [...] months Assessment & Plan (04/17/2021 8:32 PM SUPERVISOR PHOSPHORUS PROCESSING): Continue with vitamin D3 as ordered. Will get set up for a bone density at [facility] as available Assessment & Plan (03/08/2021 3:07 PM SUPERVISOR PHOSPHORUS PROCESSING): Lab today. Make sure she is eating [...] elevation Assessment & Plan (04/17/2021 8:24 PM SUPERVISOR PHOSPHORUS PROCESSING): Hypertension stable at this time Continue medications as ordered Continue to watch diet for increased salt intake or salty foods no added salt at this time. Exercise, at least 3 times per week, for 30 minutes or as tolerated Assessment & Plan (03/08/2021 2:58 PM SUPERVISOR PHOSPHORUS PROCESSING): Continue with medications as ordred. Watch diet [...] on. Assessment & Plan (04/17/2021 8:31 PM SUPERVISOR PHOSPHORUS PROCESSING): Still having irregular heartbeat, lasting only a few minutes. Talked with patient about options to care noting past lab results were good. Next step would to get a Holter monitor, 2D echocardiogram with color flow, to refer to air filler. Will get CT and carotid Doppler done 1st. Unless palpitations become more frequently distress to the patient if there is any chest pain shortness of breath diaphoresis to go straight to the emergency room. Prefer that she goes to [facility], and ask for Dr. Luna or Dr. Watters or Saida.. Assessment & Plan (03/08/2021 3:06 PM SUPERVISOR PHOSPHORUS PROCESSING): Get old records for review. Lab today [...] on file Legal Sex Female 5:38 PM SUPERVISOR PHOSPHORUS PROCESSING Gender Identity Not on file Sexual Orientation Not on file Obstetrics History Last Filed Vital Signs Vital Sign Reading Time Taken Comments Blood Pressure 116/76 04/25/2021 12:37 PM SUPERVISOR PHOSPHORUS PROCESSING Pulse 72 04/25/2021 12:37 PM SUPERVISOR PHOSPHORUS PROCESSING Temperature 36.4 C (97.5 F) 04/25/2021 12:37 PM SUPERVISOR PHOSPHORUS PROCESSING Respiratory Rate 18 04/25/2021 12:37 PM SUPERVISOR PHOSPHORUS PROCESSING Oxygen Saturation 97% 04/25/2021 12:37 PM SUPERVISOR PHOSPHORUS PROCESSING Inhaled Oxygen Concentration - - Weight 58.8 kg (129 lb 9.6 oz) 04/25/2021 12:37 PM SUPERVISOR PHOSPHORUS PROCESSING Height 150.5 cm (4' 11.25) 04/25/2021 12:37 PM SUPERVISOR PHOSPHORUS PROCESSING Body Mass Index 25.95 04/25/2021 12:37 PM SUPERVISOR PHOSPHORUS PROCESSING Plan of Treatment Not on file Insurance MEDICARE [facility] Care Teams Continuous Drier Operator Relationship Specialty Start Date End Date Olegario Sunshine NP [address] [place] [id number] PCP - General Nurse Practitioner 03/03/21
== END 2024-12-08 22:36 | disposition home or self-care (01) ==
PROVIDERS: Emergency Provider Emergency Medicine; PCP Nurse Practitioner Family
DX: S90.31XA Contusion of right foot, initial encounter (principal); S80.212A Abrasion, left knee, initial encounter; E78.5 Hyperlipidemia, unspecified; I10 Essential (primary) hypertension; W01.0XXA Fall on same level from slipping, tripping and stumbling without subsequent striking against object, initial encounter
CPT/HCPCS: 73630; 99283